=== PATIENT | female | born 2005 | race Caucasian/White ===

== ENCOUNTER 2024-01-10 22:26 | Emergency (ER) | payer OTHER, SELFPAY ==
[2024-01-10 22:42] VITALS: BP 130/80; PULSE 75; TEMP 37.2; O2SAT 98; BMI 36.3
--- NOTE | 2024-01-10 22:47 | XR_ITS ---
The [address] [address] Patient Name: CAMILLE HUNT MRN: [id number] date: 2005 Sex: F Assigned Patient Location: ER Current Patient Location: ER Accession/Order Number: [id number] Exam Date: 01/10/2024 22:52 Report Date: 01/10/2024 23:23 At the request of: CARLENE CONRAD Procedure: XR ankle LT min 3V EXAM: XR ankle LT min 3V HISTORY: Fall, twisted COMPARISON: Left ankle x-rays, 08/29/2021. TECHNIQUE: AP, oblique and lateral left ankle x-rays. FINDINGS: There is no acute left ankle fracture. There is mild asymmetric widening of the lateral ankle mortise. Anterior and bilateral soft tissue swelling is present. XR/XR ankle LT min 3V IMPRESSION: Diffuse soft tissue swelling with mild asymmetric widening of the lateral ankle mortise. No acute fracture or hany dislocation. Electronically authenticated by: FRIEDA HIDALGO Date: 01/10/2024 23:23
--- NOTE | 2024-01-10 22:47 | ED.LOWEXI1 ---
HPI HPI - Extremity Injury (Lower) General Chief Complaint: Extremity Injury, Lower Stated Complaint: LEFT ANKLE INJURY Time Seen by Provider: 01/10/24 22:28 Source: patient Mode of arrival: Wheelchair Limitations: no limitations History of Present Illness HPI Narrative: 18-year-old female presents for left ankle pain. About an hour ago she fell and twisted her ankle when she slipped on a wet floor. She did not hit her head and has no other injury. No pain in the foot or knee. The pain is moderate. Related Data Home Medications ?Medication ?Instructions ?Recorded ?Confirmed desogestrel 0.15 mg-ethinyl 1 tab PO DAILY 01/10/24 01/10/24 estradiol 0.03 mg tablet (Isibloom) Previous Rx's ?Medication ?Instructions ?Recorded ibuprofen 800 mg tablet 800 mg PO Q8H PRN pain #20 tabs 01/10/24 Allergies Allergy/AdvReac Type Severity Reaction Status Date / Time No Known Drug Allergies Allergy Verified 01/10/24 22:46 Opioid HPI Opioid Management Most Recent Pain and Opioid Data: Last Pain Scale 7 01/10/24 22:55 Last ED Pain Assessment 01/10/24 22:55 Review of Systems ROS Narrative A ten point review of systems is negative except as noted above. Exam Narrative Exam Narrative: Nurses note and vital signs reviewed and patient is not hypoxic. General: The patient appears well and in no apparent distress. Patient is resting comfortably on cart. Skin: Warm, dry, no pallor noted. There is no rash noted. Head: Normocephalic, atraumatic Eye: Normal conjunctiva, no drainage Ears, Nose, Mouth, and Throat: oral mucosa is moist. Nares patent. Cardiovascular: Regular Rate and Rhythm Respiratory: Patient is in no distress, no accessory muscle use Back: non-tender GI: Soft and Musculoskeletal: No tenderness in the left knee or left foot. She has some tenderness over the left lateral malleolus. Skin intact. Neurological: Awake and alert Psychiatric: Cooperative Constitutional Vital Signs, click to edit/add: Last Vital Signs Temp 98.9 F 01/10/24 22:42 Pulse 75 01/10/24 22:42 Resp 16 01/10/24 22:42 BP 130/80 01/10/24 22:42 Pulse Ox 98 01/10/24 22:42 O2 Del Method Room Air 01/10/24 22:42 Course Vital Signs Vital signs: Vital Signs Temperature 98.9 F 01/10/24 22:42 Pulse Rate 75 01/10/24 22:42 Respiratory Rate 16 01/10/24 22:42 Blood Pressure 130/80 01/10/24 22:42 Pulse Oximetry 98 01/10/24 22:42 Oxygen Delivery Method Room Air 01/10/24 22:42 Temperature 98.9 F 01/10/24 22:42 Pulse Rate 75 01/10/24 22:42 Respiratory Rate 16 01/10/24 22:42 Blood Pressure 130/80 01/10/24 22:42 Pulse Oximetry 98 01/10/24 22:42 Oxygen Delivery Method Room Air 01/10/24 22:42 MDM - Extremity Injury (Lower) MDM Narrative Medical decision making narrative: X-ray findings are discussed with the patient and her family. Toro wrap and air splint are applied, application checked by me and found to be appropriate, she is neurovascular intact. She is placed on crutches and referred to podiatry. Treatment diagnosis and follow-up were discussed with the patient. Differential Diagnosis Differential diagnosis: Likely ankle sprain and strain and other (Ankle sprain, ankle fracture) Imaging Data Ankle x-ray: Radiologist's impression: ITS Impressions Ankle X-Ray 01/10/24 22:47 IMPRESSION: Diffuse soft tissue swelling with mild asymmetric widening of the lateral ankle mortise. No acute fracture or hany dislocation. Electronically authenticated by: FRIEDA HIDALGO Date: 01/10/2024 23:23 Discharge Plan Discharge Stand Alone Forms: Portal Instructions Chief Complaint: Extremity Injury, Lower Clinical Impression: Left ankle sprain Patient Disposition: Home, Self-Care Time of Disposition Decision: 23:31 Condition: Good Mode of Transportation: Private Vehicle Prescriptions / Home Meds: New ibuprofen 800 mg tablet 800 mg PO Q8H PRN (Reason: pain) Qty: 20 0RF No Action desogestrel-ethinyl estradiol [Isibloom] 0.15-0.03 mg tablet 1 tab PO DAILY Print Language: Bengali Instructions: Ankle Sprain (ED), Crutch Instructions (ED), How to Use an Elastic Bandage (ED), Ankle Stirrup Splint (ED) Referrals: JOSEPH TAPIA [Primary Care Provider] - 1 week Manjeet Mohan DPM [Physician] - 1 week
[2024-01-10] MEDS: IBUPROFEN 400 MG TABLET 800 MG PO (23:54)
== END 2024-01-11 00:16 | disposition home or self-care (01) ==
PROVIDERS: Emergency Provider Emergency Medicine; PCP Nurse Practitioner
DX: S93.402A Sprain of unspecified ligament of left ankle, initial encounter (principal); W01.0XXA Fall on same level from slipping, tripping and stumbling without subsequent striking against object, initial encounter
CPT/HCPCS: 73610; 99283

== ENCOUNTER 2024-01-19 16:00 | Outpatient (OUT) | payer OTHER, SELFPAY ==
--- NOTE | 2024-01-19 | XR_ITS ---
The [address] [address] Patient Name: CAMILLE HUNT MRN: [id number] date: 2005 Sex: F Assigned Patient Location: Current Patient Location: Accession/Order Number: [id number] Exam Date: 01/19/2024 16:01 Report Date: 01/19/2024 18:00 At the request of: TERRI CALI Procedure: XR ankle LT min 3V EXAM: XR ankle LT min 3V HISTORY: LEFT ANKLE PAIN COMPARISON: 01/10/2024 TECHNIQUE: 3 views of the left ankle were obtained. FINDINGS: There is no apparent acute fracture or dislocation. There are bone fracture fragments along the lateral aspect of the distal tibial metaphysis. These were not visualized in the prior studies. There is slight relative widening of the mortise along the lateral aspect. There is no other evidence of a fracture or dislocation. The mortise is otherwise intact. No osteochondral injury is identified. Soft tissue swelling is noted surrounding the ankle, more so medially. XR/XR ankle LT min 3V IMPRESSION: Small fracture fragments are seen along the ulnar aspect of the distal tibial metaphysis, which were not apparent in the prior study. The findings would indicate an injury to the syndesmosis and attachment site with the tibia. Soft tissue swelling is seen about the ankle. There is no other evidence of a fracture or dislocation. Electronically authenticated by: IVONNE JEFFERSON Date: 01/19/2024 18:00
--- OUTSIDE RECORDS SUMMARY | 2024-01-19 16:11 | XMS_ITS | CCD ---
Author Organization [facility] Care Team Providers Care Veterinary Poultry Inspector Name Role Phone JV, DR KELVIN Tenorio Primary Care Unavailable CARLENE CONRAD Admitting Unavailable CARLENE CONRAD Attending Unavailable ZIEBCARRILLO, DR JOSSELYN Rai Consulting Unavailable CARLENE CONRAD Consulting Unavailable JV, DR KELVIN Tenorio Admitting Unavailable CARIAS, DR KELVIN Tenorio Attending Unavailable CARIAS, DR KELVIN Tenorio Referring Unavailable CARIAS, DR KELVIN Tenorio Primary Care Unavailable CARIAS, DR KELVIN Tenorio Consulting Unavailable CARIAS, DR KELVIN Tenorio Primary Care Unavailable PAY, DR CARUSO Consulting Unavailable PAY, DR CARUSO Admitting Unavailable PAY, DR CARUSO Attending Unavailable Tessa, ACID PAINTER Sunitha L Attending Unavailable Tessa, ACID PAINTER Sunitha L Attending Unavailable Tessa, ACID PAINTER Sunitha L Attending Unavailable Tessa, ACID PAINTER Sunitha L Attending Unavailable Problems Active Problems Problem Classification Problem Date Documented Da te Episodic/Chronic Anxiety disorders (1 source) Other specified anxiety disorders; Translations: [OTHER SPECIFIED ANXIETY DISORDERS] Onset: 12-03-2021 Chronic Mood disorders (1 source) Major depressive disorder, single episode, unspecified; Translations: [ARTURO DEPRESS D/O SINGLE EPIS UNS] Onset: 12-03-2021 Chronic Personality disorders (1 source) Personality disorder, unspecified; Translations: [PERSONALITY DISORDER UNSPECIFIED] Onset: 12-03-2021 Chronic Suicide and intentional self-inflicted injury (4 sources) Suicidal ideations; Translations: [SUICIDAL IDEATIONS] Onset: 12-02-2021 Episodic Past or Other Problems Problem Classification Problem Date Documented Da te Episodic/Chronic E Codes: Fall (1 source) Fall on same level due to ice and snow, initial encounter; Translations: [FALL SAME LEVEL D/T ICE SNOW INIT] Onset: 08-30-2021 Episodic Immunizations and screening for infectious disease (4 sources) Contact with and (suspected) exposure to other viral communicable diseases; Translations: [CONTCT EXPS OTH VIRL COMMUNICABL DZ] Onset: 04-10-2021 Episodic Other non-traumatic joint disorders (3 sources) Pain in left ankle and joints of left foot; Translations: [PAIN IN LEFT ANKLE] Onset: 08-29-2021 Episodic Sprains and strains (1 source) Sprain of unspecified ligament of left ankle, initial encounter; Translations: [SPRAIN UNS LIGAMENT LT ANKLE INIT] Onset: 08-30-2021 Episodic Results Test Name Value Interpretation Reference Range Facility ED Note-Physicianon 01-11-20 ED Note-Physician [id number] 8#1.00TIFF Normal [facility] RAD - MISCon 01-11-2024 RAD - MISC [id number] 7#1.00TIFF Normal [facility] Ambulatory Visit Summaryon 0 11-26-2023 Ambulatory Visit Summary ANGELINA RICHARDSA SARAH :2005 Visit Date:11/26/2023 Ambulatory Visit Instructions Your Diagnosis Encounter for control pills maintenance BMI 36.0-36.9,adult Non-smoker Your Care Team Attending Physician - Sunitha Schneider Primary Care Physician - Sunitha Schneider This Is Your Medications List desogestrel-ethinyl estradiol (Apri oral tablet) lurasidone (lurasidone 20 mg oral tablet) propranolol (propranolol 20 mg Tab) Discharge Vitals Heart Rate (Peripheral) 100 Blood Pressure 116/84 Height 169.2 cm Height 67 in Weight 104.0 kg Weight 228.8 lb BMI 36.33 What to do next Scheduled Follow-Up Appointments 2024 3:00 PM EST With: Sunitha Schneider Where: [facility] [place] Normal [facility] Family Medicine Office/Clini c Noteon 11-26-2023 Family Medicine Office/Clinic Note Chief Complaint 3 mo fu HPI Staff Camille is a 18 year old female presenting for 3 month follow up Contraceptive use: Age: 22 Age period started:_ Cycle Characteristics:_, _, lasting about _, In a relationship:yes Sexually active:yes Exposure to STDS:no Safe practices:Yes, uses condoms concerns/complains: none, History of Present Illness pt presents today for follow up on OCP's Review of Systems PHQ Score Initial Depression Screen Score: 0 SCORE Physical Exam Vitals & Measurements HR: 100(Peripheral) BP: 116/84 SpO2: 96% HT: 67 in HT: 169.2 cm WT: 104.0 kg WT: 228.8 lb BMI: 36.33 General: alert, no acute distress ENMT: oral mucosa moist, no pharyngeal erythema or exudate Cardiovascular: regular rate and rhythm, normal peripheral perfusion Respiratory: Lungs CTA, respirations non labored Extremities: no deformity, no trauma Neurological: oriented x 4, LOC appropriate for age, CN II-XII intact, motor strength equal & normal bilaterally, speech normal Assessment/Plan 1. Encounter for control pills maintenance (Z30.41: Encounter for surveillance of contraceptive pills) pt presents today for follow up on OCP's. pt had bleeding for 2 weeks after starting it. but she did not start them as instructed. she says they are back to normal now. denies side effects. RTC 9 months for well woman visit. no pap. will just need refill on OCP's 2. BMI 36.0-36.9,adult (Z68.36: Body mass index [BMI] 36.0-36.9, adult) BMI education complete 3. Non-smoker (Z78.9: Other specified health status) continue not smoking Orders: desogestrel-ethinyl estradiol, 1 tab(s), Oral, Daily, 84 tab(s), Refill(s) 2, [facility], 169.2, cm, 11/26/23 14:58:00 EDT, Height/Length Dosing, 104, kg, 11/26/23 14:58:00 EDT, Weight Dosing desogestrel-ethinyl estradiol, 1 tab(s), Oral, Daily, 28 tab(s), Refill(s) 0, [facility], 169.2, cm, 07/16/23 13:55:00 EST, Height/Length Dosing, 101, kg, 07/16/23 13:55:00 EST, Weight Dosing Follow-up No qualifying data available Problem List/Past Medical History Ongoing Counseling for control, oral contraceptives Encounter for control pills maintenance Mild recurrent major depression Mixed bipolar affective disorder, moderate Historical No qualifying data Medications Apri oral tablet, 1 tab(s), Oral, Daily, 2 refills lurasidone 20 mg oral tablet, 20 mg= 1 tab(s), Oral, Daily propranolol 20 mg Tab, 20 mg= 1 tab(s), Oral, BID, PRN Allergies No Known Allergies Social History Tobacco Never (less than 100 in lifetime) Tobacco Use:., 11/26/2023 Never (less than 100 in lifetime) Tobacco Use:. Never Smokeless Tobacco Use:. Household tobacco concerns: No., 07/16/2023 Family History Primary malignant neoplasm of female breast: Grandparent. Immunizations Vaccine Date Status meningococcal conjugate vaccine 04/29/2022 Recorded diphtheria/pertussi s, acel/tetanus adult 02/26/2017 Recorded meningococcal conjugate vaccine 02/26/2017 Recorded hepatitis A pediatric vaccine 02/26/2017 Recorded measles/mumps/rubel la/varicella vaccine 01/02/2010 Recorded hepatitis A pediatric vaccine 01/02/2010 Recorded diphtheria/pertussi s,acel/tetanus/jina o 01/02/2010 Recorded Hib, unspecified formulation 05/05/2006 Recorded DTaP, unspecified formulation 05/05/2006 Recorded varicella virus vaccine 10/06/2005 Recorded measles/mumps/rubel la virus vaccine 10/06/2005 Recorded influenza virus vaccine, inactivated 06/11/2005 Recorded poliovirus vaccine, inactivated 02/17/2005 Recorded DTaP, unspecified formulation 02/17/2005 Recorded poliovirus vaccine, inactivated 01/08/2005 Recorded Hib, unspecified formulation 01/08/2005 Recorded DTaP, unspecified formulation 01/08/2005 Recorded poliovirus vaccine, inactivated 2004 Recorded DTaP, unspecified formulation 2004 Recorded hepatitis B pediatric vaccine 2004 Recorded Normal [facility] Comment on above: Result Comment: Elec tronically Signed By: Sunitha Scnheider\.darlene\Date and Time Signed: 11/26/23 15:08 EDT Ambulatory Visit Summaryon 1 09-16-2022 Ambulatory Visit Summary CAMILLE RICHARDS :2005 Visit Date:07/16/2023 Ambulatory Visit Instructions Your Diagnosis Counseling for control, oral contraceptives BMI 35.0-35.9,adult Non-smoker Your Care Team Attending Physician - Sunitha Schneider Primary Care Physician - Sunitha Schneider This Is Your Medications List lurasidone (lurasidone 20 mg oral tablet) propranolol (propranolol 20 mg Tab) Discharge Vitals Heart Rate (Peripheral) 70 Respiratory Rate 18 Blood Pressure 122/82 Height 169.2 cm Height 67 in Weight 101.05 kg Weight 222.31 lb BMI 35.3 What to do next Scheduled Follow-Up Appointments 2023 2:00 PM EST With: Sunitha Schneider Where: [facility] Family Medicine Office/Clini c Noteon 07-16-2023 Family Medicine Office/Clinic Note HPI Staff Camille is a 17 year old female presenting to [facility] Establish Care: History: Any previous diagnosis: Anxiety , BPD History of seeing any specialist: [employer] Karlene [facility] services When was your last doctors visit: Last provider: MG Jacobson Any recent labs: no Health Maintenance UTD: Immunizations: UTD Acute: Current issues/complaints: pt has appointment with Dr Arroyo on 07/23/23 Pt would like to discuss starting control for contraception History of Present Illness pt presents today to discuss control options Review of Systems ROS - Provider Constitutional: no fever, no chills, no sweats, no fatigue Respiratory: no shortness of breath, no cough, no orthopnea, no wheezing. Cardiovascular: no chest pain, no palpitations, no edema. Neurologic: no headache, no dizziness, no numbness, no weakness. Physical Exam Vitals & Measurements HR: 70(Peripheral) RR: 18 BP: 122/82 HT: 67 in HT: 169.2 cm WT: 101.05 kg WT: 222.31 lb BMI: 35.3 General: alert, no acute distress ENMT: oral mucosa moist, no pharyngeal erythema or exudate Cardiovascular: regular rate and rhythm, normal peripheral perfusion Respiratory: Lungs CTA, respirations non labored Extremities: no deformity, no trauma Neurological: oriented x 4, LOC appropriate for age, CN II-XII intact, motor strength equal & normal bilaterally, speech normal Assessment/Plan 1. Counseling for control, oral contraceptives (Z30.09: Encounter for other general counseling and advice on contraception) pt presents today for control options. all options discussed. as well as risk, benefits, and side effects. pt would like to try OCP's. test negative in office today. pt to return in 3 months for follow up. Ordered: HCG, Urine POC [id number] 2. BMI 35.0-35.9,adult (Z68.35: Body mass index [BMI] 35.0-35.9, adult) BMI education complete Ordered: HCG, Urine POC [id number] 3. Non-smoker (Z78.9: Other specified health status) continue not smoking Ordered: HCG, Urine POC [id number] Follow-up No qualifying data available Problem List/Past Medical History Ongoing Counseling for control, oral contraceptives Historical No qualifying data Medications lurasidone 20 mg oral tablet, 20 mg= 1 tab(s), Oral, Daily propranolol 20 mg Tab, 20 mg= 1 tab(s), Oral, BID, PRN Allergies No Known Allergies Social History Tobacco Never (less than 100 in lifetime) Tobacco Use:. Never Smokeless Tobacco Use:. Household tobacco concerns: No., 07/16/2023 Family History Primary malignant neoplasm of female breast: Grandparent. Immunizations Vaccine Date Status meningococcal conjugate vaccine 04/29/2022 Recorded diphtheria/pertussi s, acel/tetanus adult 02/26/2017 Recorded meningococcal conjugate vaccine 02/26/2017 Recorded hepatitis A pediatric vaccine 02/26/2017 Recorded measles/mumps/rubel la/varicella vaccine 01/02/2010 Recorded hepatitis A pediatric vaccine 01/02/2010 Recorded diphtheria/pertussi s,acel/tetanus/jina o 01/02/2010 Recorded Hib, unspecified formulation 05/05/2006 Recorded DTaP, unspecified formulation 05/05/2006 Recorded varicella virus vaccine 10/06/2005 Recorded measles/mumps/rubel la virus vaccine 10/06/2005 Recorded influenza virus vaccine, inactivated 06/11/2005 Recorded poliovirus vaccine, inactivated 02/17/2005 Recorded DTaP, unspecified formulation 02/17/2005 Recorded poliovirus vaccine, inactivated 01/08/2005 Recorded Hib, unspecified formulation 01/08/2005 Recorded DTaP, unspecified formulation 01/08/2005 Recorded poliovirus vaccine, inactivated 2004 Recorded DTaP, unspecified formulation 2004 Recorded hepatitis B pediatric vaccine 2004 Recorded Lab Results Ambulatory Point of Care Results HCG, Urine: Negative (07/16/23 14:11:00) Normal [facility] Comment on above: Result Comment: Elec tronically Signed By: Tessa WOODS, Sunitha Severino\.br\Date and Time Signed: 07/16/23 14:16 EST ACETAMINOPHENon 12-02-2021 Acetaminophen [Mass/Vol] ug/mL Normal 10.0-30.0 [place] Comment on above: Performed By: #### C MP, ACET, SALYC #### [facility] [address] [place] [address] Dr. Francis Dennis CBC AUTO DIFFon 12-02-2021 BASO # 0.0 103/ul Normal 0.0-0.1 [place] Comment on above: Performed By: #### C BC #### [facility] [address] [place] [address] Dr. Francis Dennis Basophils/100 WBC (Bld) 0.3 % Normal 0.2-2.0 [place] Comment on above: Performed By: #### C BC #### [facility] [address] [place] [address] Dr. Francis Dennis EO # 0.1 103/ul Normal 0.0-0.7 [place] Comment on above: Performed By: #### C BC #### [facility] [address] [place] [address] Dr. Francis Dennis Eosinophils/100 WBC (Bld) 0.8 % Critically low 0.9-7.0 [place] Comment on above: Performed By: #### C BC #### [facility] [address] [place] [address] Dr. Francis Dennis Erythrocyte distribution width (RBC) [Ratio] 14.5 % Normal 11.0-15.0 [place] Comment on above: Performed By: #### C BC #### [facility] [address] [place] [address] Dr. Francis Dennis Hematocrit (Bld) [Volume fraction] 40.3 % Normal 36.0-48.0 [place] Comment on above: Performed By: #### C BC #### [facility] [address] [place] [address] Dr. Francis Dennis Hemoglobin (Bld) [Mass/Vol] 12.6 g/dL Normal 12.0-16.0 [place] Comment on above: Performed By: #### C BC #### [facility] [address] [place] [address] Dr. Francis Dennis IG # 0.04 10e3/ul Critically high 0.00-0.03 [facility] Comment on above: Performed By: #### C BC #### [facility] [address] [place] [address] Dr. Francis Dennis IG % 0.5 % Normal 0.0-0.5 [place] Comment on above: Performed By: #### C BC #### [facility] [address] [place] [address] Dr. Francis Dennis LYMPH # 1.4 103/ul Normal 1.2-3.8 [place] Comment on above: Performed By: #### C BC #### [facility] [address] [place] [address] Dr. Francis Dennis Lymphocytes/100 WBC (Bld) 15.9 % Critically low 20.5-60.0 [place] Comment on above: Performed By: #### C BC #### [facility] [address] [place] [address] Dr. Francis Dennis MANUAL DIFF REQ NO Normal [facility] Comment on above: Performed By: #### C BC #### [facility] [address] [place] [address] Dr. Francis Dennis MCH (RBC) [Entitic mass] 27.0 pg Normal 26.7-34.0 [place] Comment on above: Performed By: #### C BC #### [facility] [address] [place] [address] Dr. Francis Dennis MCHC (RBC) [Mass/Vol] 31.3 g/dL Normal 29.9-35.2 [place] Comment on above: Performed By: #### C BC #### [facility] [address] [place] [address] Dr. Francis Dennis MCV (RBC) [Entitic vol] 86.5 fL Normal 79.1-95.6 [place] Comment on above: Performed By: #### C BC #### [facility] [address] [place] [address] Dr. Francis Dennis MONO # 0.7 103/ul Normal 0.3-0.8 [place] Comment on above: Performed By: #### C BC #### [facility] [address] [place] [address] Dr. Francis Dennis Monocytes/100 WBC (Bld) 7.5 % Normal 1.7-12.0 [place] Comment on above: Performed By: #### C BC #### [facility] [address] [place] [address] Dr. Francis Dennis NEUT # 6.7 103/ul Critically high 1.4-6.5 [facility] Comment on above: Performed By: #### C BC #### [facility] [address] [place] [address] Dr. Francis Dennis Neutrophils/100 WBC (Bld) 75.0 % Normal 43.0-75.0 [place] Comment on above: Performed By: #### C BC #### [facility] [address] [place] [address] Dr. Francis Dennis Platelet mean volume (Bld) [Entitic vol] 9.2 fL Critically low 9.5-13.5 [facility] Comment on above: Performed By: #### C BC #### [facility] [address] [place] [address] Dr. Francis Dennis PLT 287 103/ul Normal 150-450 [facility] Comment on above: Performed By: #### C BC #### [facility] [address] [place] [address] Dr. Francis Dennis RBC 4.66 106/ul Normal 3.40-5.30 [facility] Comment on above: Performed By: #### C BC #### [facility] [address] [place] [address] Dr. Francis Dennis WBC 8.9 103/ul Normal 4.0-11.0 [place] Comment on above: Performed By: #### C BC #### [facility] [address] [place] [address] Dr. Francis Dennis DRUG SCREEN RAPID (URINE)on 12-02-2021 AMP Negative Normal NEGATIVE [place] Comment on above: Performed By: #### C VDTBH, CVDAGS #### [facility] [address] [place] [address] Beti Lilian BAR Negative Normal NEGATIVE [place] Comment on above: Performed By: #### C VDTBH, CVDAGS #### [facility] [address] [place] [address] Beti Lilian BUP Negative Normal NEGATIVE [place] Comment on above: Performed By: #### C VDTBH, CVDAGS #### [facility] [address] [place] [address] Beti Lilian BZO Negative Normal NEGATIVE [place] Comment on above: Performed By: #### C VDTBH, CVDAGS #### [facility] [address] [place] [address] Beti Lilian LACY Negative Normal NEGATIVE [place] Comment on above: Performed By: #### C VDTBH, CVDAGS #### [facility] [address] [place] [address] Beti Lilian CUT-OFFS SEE BELOW Normal [facility] Comment on above: Result Comment: AMP (Amphetamine): 500ng/mL, BAR (Barbituates): 200 ng/mL, BZO (Benzodiazepines): 150 ng/mL, BUP (Buprenorphine): 10 ng/mL, LACY (Cocaine): 150 ng/mL, mAMP (Methamphetamine): 500 ng/mL, MTD (Methadone): 200 ng/mL, OPI (Opiates): 100 ng/mL, OXY (Oxycodone): 100 ng/mL, PCP (Phencyclidine): 25 ng/mL, PPX (Propoxyphene): 300 ng/mL, THC (Cannabinoids): 50 ng/mL, TCA (Trycyclic Antidepressants): 300 ng/mL Performed By: #### C CTAIA CVDAGS #### [facility] [address] [place] [address] Beti Lilian DRUG CUT HEADER DRUG CLASS TEST SYSTEM CUT-OFF CONCENTRATIONS ARE FOLLOWS: Normal [facility] Comment on above: Performed By: #### C CATIA CVDAGS #### [facility] [address] [place] [address] Beti Lilian mAMP Negative Normal NEGATIVE [facility] Comment on above: Performed By: #### C CATIA CVDAGS #### [facility] [address] [place] [address] Beti Lilian MTD Negative Normal NEGATIVE [facility] Comment on above: Performed By: #### C CATIA CVDAGS #### [facility] [address] [place] [address] Beti Lilian OPI Negative Normal NEGATIVE [facility] Comment on above: Performed By: #### C CATIA CVDAGS #### [facility] [address] [place] [address] Beti Lilian OXY Negative Normal NEGATIVE [facility] Comment on above: Performed By: #### C CATIA CVDAGS #### [facility] [address] [place] [address] Beti Lilian PCP Negative Normal NEGATIVE [facility] Comment on above: Performed By: #### C CATIA CVDAGS #### [facility] [address] [place] [address] Beti Lilian PPX Negative Normal NEGATIVE [facility] Comment on above: Performed By: #### C CASSANDRATBKai CVDAGS #### [facility] [address] [place] [address] Beti Lilian TCA Positive Abnormal NEGATIVE [facility] Comment on above: Performed By: #### Teetee BARDALES CVDAGS #### [facility] [address] [place] [address] Beti Lilian THC Negative Normal NEGATIVE [place] Comment on above: Performed By: #### C CATIA CVDAGS #### [facility] [address] [place] [address] Betidaphnie Quintana ER URINE PROFILEon 2 Bilirubin Ql (U) Negative Normal NEGATIVE [facility] Comment on above: Performed By: #### C VDTBKai CVDAGS #### [facility] [address] [place] [address] Beti Lilian Clarity (U) CLEAR Normal CLEAR [place] Comment on above: Performed By: #### C CATIA CVDAGS #### [facility] [address] [place] [address] Beti Lilian Color (U) YELLOW Normal YELLOW [place] Comment on above: Performed By: #### C CATIA CVDAGS #### [facility] [address] [place] [address] Beti Quintana ERUAHD A micrscopic examination will be performed if indicated. Normal [facility] Comment on above: Performed By: #### C CATIA CVDAGS #### [facility] [address] [place] [address] Beti Lilian Glucose Ql (U) Negative Normal NEGATIVE [facility] Comment on above: Performed By: #### C VDJILLIAN CVDAGS #### [facility] [address] [place] [address] Beti Lilian Hemoglobin Ql (U) Negative Normal NEGATIVE [facility] Comment on above: Performed By: #### C VDTBKai CVDAGS #### [facility] [address] [place] [address] Beti Lilian Ketones Ql (U) Negative Normal NEGATIVE [facility] Comment on above: Performed By: #### C VDTBKai CVDAGS #### [facility] [address] [place] [address] Beti Lilian LEUKOCYTES Negative Normal NEGATIVE [facility] Comment on above: Performed By: #### C VDTBKai CVDAGS #### [facility] [address] [place] [address] Beti Lilian Nitrite Ql (U) Negative Normal NEGATIVE [facility] Comment on above: Performed By: #### C RODRIGUEZ BARDALESS #### [facility] [address] [id number] Beti Lilian pH (U) 6.0 [pH] Normal 5-9 [place] Comment on above: Performed By: #### C RODRIGUEZ BARDALESS #### [facility] [address] [place] [address] Beti Lilian SPEC GRAVITY 1.025 Normal 1.005-<=1.025 The [facility] Comment on above: Performed By: #### C RODRIGUEZ BARDALESS #### [facility] [address] [place] [address] Beti Lilian UA PROTEIN Negative Normal NEGATIVE/ TRACE [place] Comment on above: Performed By: #### C RODRIGUEZ BARDALESS #### [facility] [address] [place] [address] Beti Lilian UR MICRO IND NOT INDICATED Normal [facility] Comment on above: Performed By: #### C RODRIGUEZ BARDALESS #### [facility] [address] [place] [address] Betidaphnie Quintana Urobilinogen Qn (U) 0.2 {Clara'U}/dL Normal 0.2 - 1. 0 [place] Comment on above: Performed By: #### C CATIA CVDISACS #### [facility] [address] [place], [place] [id number] Beti Lilian ETHANOL (BLD ALC)on 12-03-19 ALC NOTE NOTE: 80 mg/dl is the legal limit for a blood alcohol level Normal [place] Comment on above: Performed By: #### E TH #### [facility] [address] [place], [place] [address] Dr. Francis Dennis Ethanol [Mass/Vol] mg/dL Normal [facility] Comment on above: Performed By: #### E TH #### [facility] [address] [place] [address] Dr. Francis Dennis PREG HCG QUALon 12-02-2021 , QUAL Negative Normal NEGATIVE [facility] Comment on above: Performed By: #### P REG #### [facility] [address] [place] [address] Dr. Francis Dennis URon 12-02-2021 , QUAL Negative Normal NEGATIVE [facility] Comment on above: Performed By: #### P REGU, ERUR, DRUGRPD #### [facility] [address] [place] [address] [address] Francis Dennis PROF 14(COMP METB)on 022 Albumin [Mass/Vol] 4.2 g/dL Normal 3.4-5.0 [facility] Comment on above: Performed By: #### C MP, ACET, SALYC #### [facility] [address] [place] [address] Dr. Francis Dennis Albumin/Globulin [Mass ratio] 1.2 {ratio} Normal [place] Comment on above: Performed By: #### C MP, ACET, SALYC #### [facility] [address] [place] [address] Dr. Francis Dennis ALP [Catalytic activity/Vol] 85 U/L Normal 65-260 [place] Comment on above: Performed By: #### C MP, ACET, SALYC #### [facility] [address] [place] [address] Dr. Francis Dennis ALT [Catalytic activity/Vol] 30 U/L Normal 14-59 [place] Comment on above: Performed By: #### C MP, ACET, SALYC #### [facility] [address] [place] [address] Dr. Francis Dennis Anion gap [Moles/Vol] 10.4 mmol/L Normal [place] Comment on above: Performed By: #### C MP, ACET, SALYC #### [facility] [address] [place] [address] Dr. Francis Dennis AST [Catalytic activity/Vol] 20 U/L Normal 15-37 [place] Comment on above: Performed By: #### C MP, ACET, SALYC #### [facility] [address] [place] [address] Dr. Francis Dennis Bilirubin [Mass/Vol] 0.2 mg/dL Normal 0.2-1.0 [place] Comment on above: Performed By: #### C MP, ACET, SALYC #### [facility] [address] [place] [address] Dr. Francis Dennis Calcium [Mass/Vol] 8.9 mg/dL Normal 8.5-10.1 [facility] Comment on above: Performed By: #### C MP, ACET, SALYC #### [facility] [address] [place] [address] Dr. Francis Dennis Chloride [Moles/Vol] 103 mmol/L Normal 98-107 [facility] Comment on above: Performed By: #### C MP, ACET, SALYC #### [facility] [address] [place] [address] Dr. Francis Dennis CO2 [Moles/Vol] 31.8 mmol/L Normal 21.0-32.0 [facility] Comment on above: Performed By: #### C MP, ACET, SALYC #### [facility] [address] [place] [address] Dr. Francis Dennis Creatinine [Mass/Vol] 0.96 mg/dL Normal 0.55-1.02 [place] Comment on above: Performed By: #### C MP, ACET, SALYC #### [facility] [address] [place] [address] Dr. Francis Dennis EGFR-AF CITIZEN [place] >60 Normal >=60 [facility] Comment on above: Performed By: #### C MP, ACET, SALYC #### [facility] [address] [place] [address] Dr. Francis Dennis EGFR-NON AF CITIZEN OF [place] >60 Normal >=60 [place] Comment on above: Performed By: #### C MP, ACET, SALYC #### [facility] [address] [place] [address] Dr. Francis Dennis Globulin (S) [Mass/Vol] 3.4 g/dL Normal [place] Comment on above: Performed By: #### C MP, ACET, SALYC #### [facility] [address] [place] [address] Dr. Francis Dennis Glucose [Mass/Vol] 90 mg/dL Normal 74-106 [facility] Comment on above: Performed By: #### C MP, ACET, SALYC #### [facility] [address] [place] [address] Dr. Francis Dennis Potassium [Moles/Vol] 4.2 mmol/L Normal 3.5-5.1 [place] Comment on above: Performed By: #### C MP, ACET, SALYC #### [facility] [address] [place] [address] Dr. Francis Dennis Protein [Mass/Vol] 7.6 g/dL Normal 6.1-8.2 [facility] Comment on above: Performed By: #### C MP, ACET, SALYC #### [facility] [address] [place] [address] Dr. Francis Dennis Sodium [Moles/Vol] 141 mmol/L Normal 136-145 [facility] Comment on above: Performed By: #### C MP, ACET, SALYC #### [facility] [address] [place] [address] Dr. Francis Dennis Urea nitrogen [Mass/Vol] 8.0 mg/dL Normal 6.4-19.3 [facility] Comment on above: Performed By: #### C MP, ACET, SALYC #### [facility] [address] [place] [address] Dr. Francis Dennis Urea nitrogen/Creatinine [Mass ratio] 8.3 mg/mg Normal [facility] Comment on above: Performed By: #### C MP, ACET, SALYC #### [facility] [address] [place] [address] Dr. Francis Dennis SALICYLATEon 12-02-2021 SALICYLATE <2.8 Normal <=20.0 [facility] Comment on above: Performed By: #### C MP, ACET, SALYC #### [facility] [address] [place] [address] [address] Francis Dnenis Acetaminophenon 05-16-2021 Acetaminophen [Mass/Vol] 11.9 ug/mL Normal 10.0-30.0 [facility] Comment on above: Result Comment: PERF ORMED BY: [facility] [address] [place] [address] PATHOLOGIST BENCH MOLDER APPRENTICE MARGOT GALAN M.D. Performed By: #### A KALIE, LUBADS, [facility] #### [facility] [address] COVID-19 Antigenon 1 COVID-19 Antigen Healthcare Worker?: N Malu Reference -- Malu Reference Negative SARS-CoV+SARS-CoV-2 (COVID-19) Ag [Presence] in Respiratory specimen by Rapid immunoassay Negative for SARS Antigen by CHRISTINE COVID19 Blank Space Malu Disclaimer Negative results, from patients with symptom Malu Disclaimer onset beyond five days, should be treated as [place] Disclaimer presumptive and confirmation with a molecular [place] Disclaimer assay, if necessary, for patient management, Malu Disclaimer may be performed. Negative results do not rule [place] Disclaimer out COVID-19 and should not be used as the sole Mal[place] Disclaimer basis for treatment or patient management Malu Disclaimer decisions, including infection control decisions. Malu Disclaimer Negative results should be considered in the Malu Disclaimer context of a patient's recent exposures, history Malu Disclaimer and the presence of clinical signs and symptoms Malu Disclaimer consistent with COVID-19. COVID19 Blank Space Malu Disclaimer The Malu SARS Antigen CHRISTINE does not differentiate Malu Disclaimer between SARS-CoV and SARS-CoV-2. COVID19 Blank Space Malu Disclaimer This test was developed and its performance Malu Disclaimer characteristic determined by [employer] and Malu Disclaimer validated at [facility]. This Malu Disclaimer test has not been FDA cleared or approved. This Malu Disclaimer test has been authorized by FDA under an Emergency Use Malu Disclaimer Authorization (EUA). This test has been validated Mal[place] Disclaimer in accordance with the FDA's Guidance Document (Policy Malu Disclaimer for Diagnostics Testing in Laboratories Certified to Malu Disclaimer Perform High Complexity Testing under CLIA prior to Malu Disclaimer Emergency Use Authorization for Coronavirus Malu Disclaimer iseas during the Public Health Emergency) Malu Disclaimer issued on November 10, 2019. This test is only authorized Malu Disclaimer for the duration of time the declaration that Malu Disclaimer circumstances exist justifying the authorization of Malu Disclaimer the emergency use of in vitro diagnostic tests for Malu Disclaimer detection of SARS-CoV-2 virus and/or diagnosis of Malu Disclaimer COVID-19 infection under section 564(b)(1) of the Malu Disclaimer Act, 21 U.S.C. 360bbb-3(b)(1), unless the Malu Disclaimer authorization is terminated or revoked sooner. PERFORMED BY: [place] [address] PATHOLOGIST BENCH MOLDER APPRENTICE MARGOT GALAN M.D. [facility] Comment on above: Performed By: #### C OVID-19 GALO TORIBIOEG #### [address] ECG 12 lead ECGon 05-16-2021 ECG 12 lead ECG [facility] [address] [place] [address] [place] [address] Electrocardiograph Report Signed Patient: Camille Richards MR#: [id number] 2 : 2005 Acct:[id number] Age/Sex: 15 / F ADM Date: 05/15/21 Loc: ER Room: Type: [facility] ER Attending Dr: Ordering Provider: Francisco Ba DO Date of Service: 05/15/2101/29/2128 ECG/ECG 12 lead ECG: Psychiatric Symptoms Copies to: Test Reason : Blood Pressure : / mmHG Vent. Rate : 061 BPM Atrial Rate : 061 BPM P-R Int : 146 ms QRS Dur : 078 ms QT Int : 388 ms P-R-T Axes : 032 084 039 degrees QTc Int : 390 ms Normal sinus rhythm with sinus arrhythmia Normal ECG No previous ECGs available Confirmed by Francisco Ba DO ([id number]) on 05/16/2021 1:49:03 AM Referred By: Electronically Signed By:Francisco Ba DO Transcribed By: MUS Signed By Francisco Ba DO 1 0149 Normal [facility] Malu Ag Negativeon 05-16-20 21 Malu Ag Negative Negative Normal Negative [facility] Comment on above: Result Comment: This is a duplicate Malu SARS Antigen (CHRISTINE) result to be used for statistical tracking purpose only. PERFORMED BY: [place] [address] PATHOLOGIST BENCH MOLDER APPRENTICE MARGOT GALAN M.D. Performed By: #### C OVID-19 MALU, SOFIANEG #### [place] [id number] [facility] Acetaminophenon 05-15-2021 Acetaminophen [Mass/Vol] 32.2 ug/mL High 10.0-30.0 [facility] Comment on above: Result Comment: 4 ho urs after dose, critical > 150 12 hours after dose, critical > 40 PERFORMED BY: [place] [address] PATHOLOGIST BENCH MOLDER APPRENTICE MARGOT GALAN M.D. Performed By: #### S AL, ACET #### [address] [place] [address] [place] Complete Blood Count Auto Di ffon 05-15-2021 Basophils (Bld) [#/Vol] 0.1 10*3/uL Normal 0.0-0.1 [facility] Comment on above: Result Comment: PERF ORMED BY: [place] [address] PATHOLOGIST BENCH MOLDER APPRENTICE MARGOT GALAN M.D. Performed By: #### C BC, CMP, ETOH #### [address] Basophils/100 WBC (Bld) 0.6 % Normal . [facility] Comment on above: Performed By: #### C BC, CMP, ETOH #### [address] Eosinophils (Bld) [#/Vol] 0.0 10*3/uL Normal 0.0-0.7 [facility] Comment on above: Performed By: #### C BC, CMP, ETOH #### [address] Eosinophils/100 WBC (Bld) 0.3 % Normal . [facility] Comment on above: Performed By: #### C BC, CMP, ETOH #### [address] Erythrocyte distribution width (RBC) [Ratio] 13.4 % Normal 11.9-15.3 [facility] Comment on above: Performed By: #### C BC, CMP, ETOH #### [place] [address] [place] Hematocrit (Bld) [Volume fraction] 40.9 % Normal 36.0-46.0 [facility] Comment on above: Performed By: #### C BC, CMP, ETOH #### [place] [address] [place] Hemoglobin (Bld) [Mass/Vol] 13.6 g/dL Normal 12.0-16.0 [facility] Comment on above: Performed By: #### C BC, CMP, ETOH #### [address] [place] [address] [place] Lymphocytes (Bld) [#/Vol] 1.6 10*3/uL Normal 1.20-4.8 [facility] Comment on above: Performed By: #### C BC, CMP, ETOH #### [facility] [address] [place] [address] [place] Lymphocytes/100 WBC (Bld) 12.2 % Normal . [facility] Comment on above: Performed By: #### C BC, CMP, ETOH #### [facility] [address] [place] [address] [place] MCH (RBC) [Entitic mass] 28.6 pg Normal 25.0-35.0 [facility] Comment on above: Performed By: #### C BC, CMP, ETOH #### [facility] [address] MCV (RBC) [Entitic vol] 86.2 fL Normal 78-102 [facility] Comment on above: Performed By: #### C BC, CMP, ETOH #### [facility] [address] Mean Corpuscular HGB Conc 33.2 g/dL Normal 31.0-37.0 [facility] Comment on above: Performed By: #### C BC, CMP, ETOH #### [facility] [address] [place] [address] [place] Monocytes (Bld) [#/Vol] 0.9 10*3/uL Normal 0.1-1.00 [facility] Comment on above: Performed By: #### C BC, CMP, ETOH #### [place] [address] [place] Monocytes/100 WBC (Bld) 6.8 % Normal . [facility] Comment on above: Performed By: #### C BC, CMP, ETOH #### [facility] [address] [place] [address] [place] Neutrophils (Bld) [#/Vol] 10.4 10*3/uL High 1.2-7.7 [facility] Comment on above: Performed By: #### C BC, CMP, ETOH #### [facility] [address] [place] [address] [place] Neutrophils/100 WBC (Bld) 80.1 % Normal . [facility] Comment on above: Performed By: #### C BC, CMP, ETOH #### [facility] [address] Nucleated RBC/100 WBC (Bld) [Ratio] 0.0 % Normal 0-0.5 [facility] Comment on above: Performed By: #### C BC, CMP, ETOH #### [facility] [address] Platelet mean volume (Bld) [Entitic vol] 7.5 fL Normal 6.3-10.7 [facility] Comment on above: Performed By: #### C BC, CMP, ETOH #### [facility] [address] Platelets (Bld) [#/Vol] 301 10*3/uL Normal 150-450 [facility] Comment on above: Performed By: #### C BC, CMP, ETOH #### [place] [address] [place] RBC (Bld) [#/Vol] 4.74 10*6/uL Normal 4.10-5.10 [facility] Comment on above: Performed By: #### C BC, CMP, ETOH #### [facility] [address] [place] [address] [place] WBC (Bld) [#/Vol] 13.0 10*3/uL Normal 4.5-13.5 [facility] Comment on above: Performed By: #### C BC, CMP, ETOH #### [address] Comprehensive Metabolic Pane santos 05-15-2021 Albumin [Mass/Vol] 4.2 g/dL Normal 3.2-5.5 [facility] Comment on above: Performed By: #### C BC, CMP, ETOH #### [place] [address] [place] Albumin/Globulin [Mass ratio] 1.7 {ratio} Normal [facility] Comment on above: Performed By: #### C BC, CMP, ETOH #### [facility] [address] [place] [id number] [place] ALP [Catalytic activity/Vol] 55 U/L Low 67-372 [facility] Comment on above: Performed By: #### C BC, CMP, ETOH #### [facility] [address] [place] [id number] [place] ALT [Catalytic activity/Vol] 36 U/L Normal 10-60 [facility] Comment on above: Performed By: #### C BC, CMP, ETOH #### [facility] [address] AST [Catalytic activity/Vol] 26 U/L Normal 10-42 [facility] Comment on above: Performed By: #### C BC, CMP, ETOH #### [facility] [address] Bilirubin [Mass/Vol] 0.6 mg/dL Normal 0.3-1.2 [facility] Comment on above: Performed By: #### C BC, CMP, ETOH #### [facility] [address] [place] [address] [place] Calcium [Mass/Vol] 9.5 mg/dL Normal 8.2-10.2 [facility] Comment on above: Performed By: #### C BC, CMP, ETOH #### [facility] [address] [place] [address] [place] Chloride [Moles/Vol] 100 mmol/L Normal 95-114 [facility] Comment on above: Performed By: #### C BC, CMP, ETOH #### [facility] [address] [place] [id number] [place] CO2 [Moles/Vol] 25.9 mmol/L Normal 22.0-30.0 [facility] Comment on above: Performed By: #### C BC, CMP, ETOH #### [facility] [address] [place] [id number] [place] Creatinine [Mass/Vol] 0.83 mg/dL Normal 0.44-1.03 [facility] Comment on above: Performed By: #### C BC, CMP, ETOH #### [facility] [address] [place] [address] [place] Creatinine Clr Calc Pharmacy 120.35 Normal [facility] Comment on above: Result Comment: PERF ORMED BY: [place] [address] PATHOLOGIST BENCH MOLDER APPRENTICE MARGOT GALAN M.D. Performed By: #### C BC, CMP, ETOH #### [facility] [address] Globulin (S) [Mass/Vol] 2.5 g/dL Normal [facility] Comment on above: Performed By: #### C BC, CMP, ETOH #### [address] Glucose [Mass/Vol] 98 mg/dL Normal 70-100 [facility] Comment on above: Result Comment: [place] Glucose Reference Range is dependent on time and content of last meal. Glucose of more than 200 mg/dL in a nonstressed, ambulatory subject supports the diagnosis of Diabetes Mellitus. ADA recommended reference range Performed By: #### C BC, CMP, ETOH #### [address] Potassium [Moles/Vol] 3.8 mmol/L Normal 3.5-5.1 [facility] Comment on above: Performed By: #### C BC, CMP, ETOH #### [address] Protein [Mass/Vol] 6.7 g/dL Normal 6.1-7.9 [facility] Comment on above: Performed By: #### C BC, CMP, ETOH #### [facility] [address] Sodium [Moles/Vol] 138 mmol/L Normal 138-145 [facility] Comment on above: Performed By: #### C BC, CMP, ETOH #### [facility] [address] Urea nitrogen [Mass/Vol] 10 mg/dL Normal 9-23 [facility] Comment on above: Performed By: #### C BC, CMP, ETOH #### [facility] [address] [place] [address] [place] Dipstick and Microscopicon 1 Appearance (U) Slightly Cloudy Critically abnormal Clear [facility] Comment on above: Order Comment: Name Collection Type:: Clean-Voided Midstream Performed By: #### A DDONUAPLUS, URDS, UHCG #### [facility] [address] [place] [address] [place] Bacteria,Urine 2+ High None Seen [facility] Comment on above: Order Comment: Name Collection Type:: Clean-Voided Midstream Performed By: #### A DDONUAPLUS, URDS, UHCG #### [facility] [address] [place] [address] [place] Bilirubin,Urine 1+ High Negative [facility] Comment on above: Order Comment: Name Collection Type:: Clean-Voided Midstream Performed By: #### A DDONUAPLUS, URDS, UHCG #### [facility] [address] [place] [address] [place] Color (U) Yellow Normal Yellow [facility] Comment on above: Order Comment: Name Collection Type:: Clean-Voided Midstream Performed By: #### A DDONUAPLUS, URDS, UHCG #### [facility] [address] [place] [id number] [place] Glucose Ql (U) Normal Normal Normal [facility] Comment on above: Order Comment: Name Collection Type:: Clean-Voided Midstream Performed By: #### A DDONUAPLUS, URDS, UHCG #### [facility] [address] [place] [address] [place] Ketones Ql (U) 1+ High Negative [facility] Comment on above: Order Comment: Name Collection Type:: Clean-Voided Midstream Performed By: #### A DDONUAPLUS, URDS, UHCG #### [facility] [address] [place] [address] [place] Leukocyte esterase Test strip Ql (U) Negative Normal Negative [facility] Comment on above: Order Comment: Name Collection Type:: Clean-Voided Midstream Performed By: #### A DDONUAPLUS, URDS, UHCG #### [address] Mucus,Urine 2+ Critically abnormal [facility] Comment on above: Order Comment: Name Collection Type:: Clean-Voided Midstream Performed By: #### A DDONUAPLUS, URDS, UHCG #### [address] Nitrite,Urine Negative Normal Negative [facility] Comment on above: Order Comment: Name Collection Type:: Clean-Voided Midstream Performed By: #### A DDONUAPLUS, URDS, UHCG #### [address] Occult Blood,Urine Negative Normal Negative [facility] Comment on above: Order Comment: Name Collection Type:: Clean-Voided Midstream Performed By: #### A DDONUAPLUS, URDS, UHCG #### [address] pH (U) 5.5 [pH] Normal 5.0-9.0 [facility] Comment on above: Order Comment: Name Collection Type:: Clean-Voided Midstream Performed By: #### A DDONUAPLUS, URDS, UHCG #### [address] Protein (U) [Mass/Vol] 30 mg/dL High Negative [facility] Comment on above: Order Comment: Name Collection Type:: Clean-Voided Midstream Performed By: #### A DDONUAPLUS, URDS, UHCG #### [address] RBC LM.HPF (Urine sed) [#/Area] 0 /[HPF] Normal 0-4 [facility] Comment on above: Order Comment: Name Collection Type:: Clean-Voided Midstream Performed By: #### A DDONUAPLUS, URDS, UHCG #### [address] [place] [address] [place] Specificy [place],Urine 1.030 Normal 1.001-1.030 [facility] Comment on above: Order Comment: Name Collection Type:: Clean-Voided Midstream Performed By: #### A DDONUAPLUS, URDS, UHCG #### [address] Squamous Epithelial Cell,Urine 5-9 High 0-2 [facility] Comment on above: Order Comment: Name Collection Type:: Clean-Voided Midstream Performed By: #### A DDONUAPLUS, URDS, UHCG #### [address] Urobilinogen,Urine Normal Normal Normal [facility] Comment on above: Order Comment: Name Collection Type:: Clean-Voided Midstream Performed By: #### A DDONUAPLUS, URDS, UHCG #### [address] WBC,Urine 3-4 Normal 0-4 [facility] Comment on above: Order Comment: Name Collection Type:: Clean-Voided Midstream Performed By: #### A DDONUAPLUS, URDS, UHCG #### [address] Drug Screen,Urineon 05-15-20 21 Amphetamine Screen,Urine Negative Normal Negative [facility] Comment on above: Performed By: #### A DDONUAPLUS, URDS, UHCG #### [address] Barbiturate Screen,Urine Negative Normal Negative [facility] Comment on above: Performed By: #### A DDONUAPLUS, URDS, UHCG #### [place] [address] [place] Benzodiazepines Screen,Urine Negative Normal Negative [facility] Comment on above: Performed By: #### A DDONUAPLUS, URDS, UHCG #### [address] Cannabinoid Screen,Urine Negative Normal Negative [facility] Comment on above: Result Comment: Thes e are unconfirmed results and should not be used for legal purposes. Drug Cut-Off Concentration: AMPH 1000 ng/mL CHENCHO 200 ng/mL ANNI 200 ng/mL COCM 300 ng/mL OP 300 ng/mL PCP 25 ng/mL THC 20 ng/mL PERFORMED BY: [place] [address] PATHOLOGIST BENCH MOLDER APPRENTICE MARGOT GALAN M.D. Performed By: #### A DDONUAPLUS, URDS, CG #### [address] Cocaine Screen,Urine Negative Normal Negative [facility] Comment on above: Performed By: #### A DDONUAPLUS, URDS, CG #### [address] Opiate Screen,Urine Negative Normal Negative [facility] Comment on above: Performed By: #### A DDONUAPLUS, URDS, CG #### [address] Phencyclidine Screen,Urine Negative Normal Negative [facility] Comment on above: Performed By: #### A DDONUAPLUS, URDS, CG #### [address] Ethyl Alcohol Profileon 10 Ethanol [Mass/Vol] mg/dL Normal [facility] Comment on above: Performed By: #### C BC, CMP, ETOH #### [facility] [address] [place] [address] Percent Ethanol Not performed Normal [facility] Comment on above: Result Comment: PERF ORMED BY: [place] [address] PATHOLOGIST BENCH MOLDER APPRENTICE MARGOT GALAN M.D. Performed By: #### C BC, CMP, ETOH #### [facility] [address] [place] [address] HCG,Urineon 10-06-2021 Beta HCG ( test) Ql (U) Negative Normal [facility] Comment on above: Order Comment: Name Collection Type:: Clean-Voided Midstream Result Comment: PERF ORMED BY: [place] [address] PATHOLOGIST BENCH MOLDER APPRENTICE MARGOT GALAN M.D. Performed By: #### A DDONUAPLUS, URDS, UHCG #### [facility] [address] Salicylateon 05-15-2021 Salicylate < 4.0 Low 15.0-30.0 [facility] Comment on above: Result Comment: Velia ents treated with Sulfasalazine may generate a false high result for Salicylate. Patients treated with Sulfapyridine may generate a false low result for Salicylate. Performed By: #### S AL, ACET #### [facility] [address] Covid-19 PCR (CVDTB)on SARS-CoV-2 (COVID-19) RNA ABHIJEET+probe Ql (Unsp spec) Not detected Normal NOT DETECTED [facility] Comment on above: Result Comment: This test is not yet approved or cleared by the [place] FDA. When there are no FDA-approved or cleared tests available, and other criteria are met, FDA can make tests available under an emergency access mechanism called an Emergency Use Authorization (EUA). The EUA for this test is supported by the Security Administrator of Health and Human Service's (HHS's) declaration that circumstances exist to justify the emergency use of in vitro diagnostics for the detection and/or diagnosis of the virus that causes COVID-19. This EUA will remain in effect (meaning this test can be used) for the duration of the COVID-19 declaration justifying emergency of IVDs, unless it is terminated or revoked by FDA (after which the test may no longer be used). When diagnostic testing is negative, the possibility of a false negative should be considered in the context of a patient's recent exposures and the presence of clinical signs and symptoms consistent with SARS-CoV-2. Performed By: #### C VDTBH, CVDAGS #### [facility] [address] [place], [place] [address] Beti Quintana SYMPTOMATIC COVID-19 ANTIGEN on 04-10-2021 EUA Statement SEE BELOW Normal [facility] Comment on above: Result Comment: This test has not been FDA cleared or approved, but has been authorized by the FDA under an Emergency Use Authorization (EUA) for use by authorized laboratories certified under CLIA that meet the requirements to perform moderate or high complexity testing. This test has been authorized only for the detection of proteins from SARS-CoV-2, not for any other viruses or pathogens. The emergency use of this test is authorized for the duration of the declaration that circumstances exist justifying the authorization of emergency use of in vitro diagnostic tests for detection and/or diagnosis of Covid-19 under section 564(b)(1) of the Act, 21 U.S.C. 360bbb-3(b)(1), unless the declaration is terminated or authorization is revoked sooner. Performed By: #### C VDJILLIAN, CVDISACS #### [facility] [address] [place], [place] [address] Beti Quintana SARS-CoV-2 (COVID-19) RNA ABHIJEET+probe Ql (Unsp spec) Negative Normal NEGATIVE [facility] Comment on above: Result Comment: CONF IRMATION BY PCR PENDING PER CDC GUIDELINES/ SYMPTOMATIC PATIENT. Performed By: #### C VDTBH, CVDAGS #### [facility] [address] [place] [address] Beti Quintana Encounters Encounter Date Encounter Type Care Provider Facility Start: 08-25-2024 ambulatory ACID PAINTER Sunitha L Tessa Facil ity:[facility] Start: 11-26-2023 End: 11-26-2023 ambulatory ACID PAINTER Sunitha L Tessa Facility:[facility] Maryann meena Start: 10-02-2023 End: 10-02-2023 ambulatory ACID PAINTER Sunitha L Tessa Facility:[facility] [place] meena Start: 09-22-2023 ambulatory ACID PAINTER Sunitha Tessa Facilit y:[facility] L[place] Start: 07-16-2023 End: 07-16-2023 ambulatory ACID PAINTER Sunitha L Tessa Facility:[facility] Maryann meena Start: 12-02-2021 End: 12-02-[address] KELVIN CARIAS Facility:[facility] Start: 08-29-2021 End: 08-29-[address] KELVIN CARIAS Facility:[facility] Start: 04-10-2021 End: 04-11-[address] KELVIN CARIAS Facility:[facility] Payers Date Payer Category Payer Private Health Insurance [id number] 2023 Unknown [id number] 2004 Unknown [id number] 2.16.8 [id number] 2004 Unknown [id number] 2.16.8 [id number] 2004 Unknown [id number] 2.16.8 [id number] 2004 Unknown [id number] 2.16.8 [id number] 1980 Unknown [id number] 2.16.84 [id number] 1980 Unknown [id number] 2.16.84 [id number] 1980 Unknown [id number] 2.16.84 [id number] 1959 Unknown [id number] Self-pay Clinical Note 08-29-2021 Note Date & Type Note Facility 08-29-2021 Note PROCEDURE: XR ANKLE LT MIN 3 V HISTORY: Unspecified fall ; anterior lateral ankle pain after twisting injury COMPARISON: None. FINDINGS: BONES:No fracture, acute abnormality, or significant arthropathy. SOFT TISSUES:Mild swelling. EFFUSION:None visible. OTHER: Negative. IMPRESSION: 1. Mild swelling suggesting soft tissue injury. 2. No acute bone abnormality. Electronically authenticated by: JOSSELYN BONILLA Date: 2021-08-29 08:13 [place] Summary Purpose Family History No Family History Records FoundNo Family History Records FoundNo Family History Records Found Advance Directives No Advanced Directives Records FoundNo Advanced Directives Records FoundNo Advanced Directives Records Found Additional Source Comments INFORMATION SOURCE (unrecogn ized section and content) DATE CREATED AUTHOR 09/03/2021 [facility] DATE CREATED AUTHOR AUTHOR'S ORGANIZ ATION [facility]/08/2021 [facility] DATE CREATED AUTHOR AUTHOR'S ORGANIZ ATION 01/11/2024 [facility] FOR RECORDS PERTAINING TO PATIENTS WHO ARE OR HAVE BEEN ENROLLED IN A CHEMICAL DEPENDENCY/SUBSTANCEABUSE PROGRAM, SOME INFORMATION MAY BE OMITTED. This clinical summary was aggregated from multiple sources. Caution should be exercised in using it in the provision of clinical care. This summary normalizes information from multiple sources, and as a consequence, information in this document may materially change the coding, format and clinical context of patient data. In addition, data may be omitted in some cases. CLINICAL DECISIONS SHOULD BE BASED ON THE PRIMARY CLINICAL RECORDS. [employer] provides no warranty or guarantee of the accuracy or completeness of information in this document.
== END 2024-01-19 16:01 | disposition home or self-care (01) ==
PROVIDERS: PCP Nurse Practitioner; Visit Provider Physician Assistant
DX: M25.572 Pain in left ankle and joints of left foot (principal); M25.472 Effusion, left ankle
CPT/HCPCS: 73610

== ENCOUNTER 2024-02-16 15:46 | Outpatient (OUT) | payer OTHER, SELFPAY ==
--- NOTE | 2024-02-16 | XR_ITS ---
The [address] [address] Patient Name: CAMILLE HUNT MRN: [id number] date: 2005 Sex: F Assigned Patient Location: Current Patient Location: Accession/Order Number: [id number] Exam Date: 02/16/2024 15:47 Report Date: 02/17/2024 14:30 At the request of: IVONNE SETH Procedure: XR ankle CARLINE min 3V EXAMINATION: XR ankle CARLINE min 3V HISTORY: BILATERAL ANKLE PAIN COMPARISON: No relevant comparison available. FINDINGS: RIGHT FINDINGS: BONES: Normal. No significant arthropathy or acute abnormality. SOFT TISSUES: Negative. No visible soft tissue swelling. OTHER: Negative. LEFT FINDINGS: BONES: Normal. No significant arthropathy or acute abnormality. SOFT TISSUES: Negative. No visible soft tissue swelling. OTHER: Negative. XR/XR ankle CARLINE min 3V IMPRESSION: Normal exam Electronically authenticated by: LANIE CANTOR Date: 02/17/2024 14:30
== END 2024-02-16 15:47 | disposition home or self-care (01) ==
LOC: EC 15:46
PROVIDERS: PCP Nurse Practitioner; Visit Provider Podiatrist Foot & Ankle Surgery
DX: M25.572 Pain in left ankle and joints of left foot (principal); M25.571 Pain in right ankle and joints of right foot
CPT/HCPCS: 73610

== ENCOUNTER 2024-11-26 09:28 | Outpatient (OUT) | payer OTHER, SELFPAY ==
--- OUTSIDE RECORDS SUMMARY | 2024-11-26 09:32 | XMS_ITS | CCD ---
Author Organization [facility] Care Team Providers Care Binder Selector Name Role Phone JV, DR KELVIN Tenorio Primary Care Unavailable CARLENE CONRAD Admitting Unavailable ANAMARIA, CARLENE Moses Attending Unavailable ZIEBER, DR JOSSELYN Rai Consulting Unavailable CARLENE CONRAD Consulting Unavailable JV, DR KELVIN Tenorio Admitting Unavailable CARIAS, DR KELVIN Tenorio Attending Unavailable CARIAS, DR KELVIN Tenorio Referring Unavailable CARIAS, DR KELVIN Tenorio Primary Care Unavailable CARIAS, DR KELVIN Tenorio Consulting Unavailable CARIAS, DR KELVIN Tenorio Primary Care Unavailable PAY, DR CARUSO Consulting Unavailable PAY, DR CARUSO Admitting Unavailable PAY, DR CARUSO Attending Unavailable Tessa, ORACLE E BUSINESS DEVELOPER Sunitha L Attending Unavailable Tessa, ORACLE E BUSINESS DEVELOPER Sunitha L Attending Unavailable Tessa, ORACLE E BUSINESS DEVELOPER Sunitha L Attending Unavailable Tessa, ORACLE E BUSINESS DEVELOPER Sunitha L Attending Unavailable Tessa, ORACLE E BUSINESS DEVELOPER Sunitha L Attending Unavailable Tessa, ORACLE E BUSINESS DEVELOPER Sunitha L Attending Unavailable Problems Active Problems [...] Test Name Value Interpretation Reference Range Facility Family Medicine Office/Clini c Noteon 09-09-2024 Family Medicine Office/Clinic Note Family Medicine Office/Clinic Note HPI Staff Camille is a 19 year old female presenting for control refill Contraceptive use: Pt denies any concerns with her control at this time, does need refill. History of Present Illness pt presents today for refill on OCP's Review of Systems PHQ Score Initial Depression Screen Score: 0 SCORE Physical Exam Vitals & Measurements HR: 78(Peripheral) RR: 18 BP: 122/70 SpO2: 98% HT: 67 in HT: 169.2 cm WT: 104.1 kg WT: 229.501 lb BMI: 36.36 General: alert, no acute distress ENMT: oral [...] of contraceptive pills) pt presents today for annual visit for OCP refills. pt is doing well. denies needs. will retrun in 1 year for well woman visit. pap test. 2. BMI 36.0-36.9,adult (Z68.36: Body mass index [BMI] 36.0-36.9, adult) BMI education given 3. Non-smoker (Z78.9: Other specified health status) continue not smoking Follow-up No qualifying data available Problem List/Past Medical History Ongoing Counseling for control, oral contraceptives Encounter for control pills maintenance Mild recurrent major depression Mixed bipolar affective disorder, moderate Historical No qualifying data Medications Apri oral tablet, 1 tab(s), Oral, Daily, 2 refills busPIRone 5 mg Tab lurasidone 20 mg oral tablet, 20 mg= [...] hepatitis B pediatric vaccine 2004 Recorded Normal [facility] Comment on above: Result Comment: Elec tronically Signed By: Sunitha Schneider\.darlene\Date and Time Signed: 09/09/24 15:02 EST RAD - MISCon 01-20-2024 RAD - MISC [id number] 3#1.00TIFF Normal [facility] ED Note-Physicianon 01-11-20 ED Note-Physician [id number] 8#1.00TIFF Normal [facility] RAD - MISCon 01-11-2024 RAD MISC [id number] 7#1.00TIFF Normal [facility] Ambulatory Visit Summaryon 0 11-26-2023 Ambulatory Visit Summary CAMILLE RICHARDS :2005 Visit Date:11/26/2023 Ambulatory Visit Instructions Your [...] 3:00 PM EST With: Sunitha Schneider Where: [facility] [place] Normal [facility] Family Medicine Office/Clini c Noteon 11-26-2023 Family [...] tab(s), Oral, Daily, 84 tab(s), Refill(s) 2, [employer] #72, 169.2, cm, 11/26/23 14:58:00 EDT, Height/Length Dosing, 104, kg, 11/26/23 14:58:00 EDT, Weight Dosing desogestrel-ethinyl estradiol, 1 tab(s), Oral, Daily, 28 tab(s), Refill(s) 0, [employer] #72, 169.2, cm, 07/16/23 13:55:00 EST, Height/Length [...] hepatitis B pediatric vaccine 2004 Recorded Normal [facility] Comment on above: Result Comment: Elec tronically Signed By: Tessa WOODS, Sunitha Severino\.br\Date and Time Signed: 11/26/23 15:08 EDT ACETAMINOPHENon 12-02-2021 Acetaminophen [Mass/Vol] ug/mL Normal 10.0-30.0 [facility] Comment on above: Performed By: #### C MP, ACET, SALYC #### [facility] [address] [address] [address] Francis Dennis CBC AUTO DIFFon 12-02-2021 BASO # 0.0 103/ul Normal 0.0-0.1 [facility] Comment on above: Performed By: #### C BC #### [facility] [address] [address] [address] Francis Dennis Basophils/100 WBC (Bld) 0.3 % Normal 0.2-2.0 [facility] Comment on above: Performed By: #### C BC #### [facility] [address] [place] [address] Dr. Francis Dennis EO # 0.1 103/ul Normal 0.0-0.7 [facility] Comment on above: Performed By: #### C BC #### [facility] [address] [place] [address] Dr. Francis Dennis Eosinophils/100 WBC (Bld) 0.8 % Critically low 0.9-7.0 [facility] Comment on above: Performed By: #### C BC #### [facility] [address] [place] [address] Dr. Francis Dennis Erythrocyte distribution width (RBC) [Ratio] 14.5 % Normal 11.0-15.0 [facility] Comment on above: Performed By: #### C BC #### [facility] [address] [place] [address] Dr. Francis Dennis Hematocrit (Bld) [Volume fraction] 40.3 % Normal 36.0-48.0 [facility] Comment on above: Performed By: #### C BC #### [facility] [address] [place] [address] Dr. Francis Dennis Hemoglobin (Bld) [Mass/Vol] 12.6 g/dL Normal 12.0-16.0 [facility] Comment on above: Performed By: #### C BC #### [facility] [address] [place] [address] Dr. Francis Dennis IG # 0.04 10e3/ul Critically high 0.00-0.03 [facility] Comment on above: Performed By: #### C BC #### [facility] [address] [place] [address] Dr. Francis Dennis IG % 0.5 % Normal 0.0-0.5 [facility] Comment on above: Performed By: #### C BC #### [facility] [address] [place] [address] Dr. Francis Dennis LYMPH # 1.4 103/ul Normal 1.2-3.8 [facility] Comment on above: Performed By: #### C BC #### [facility] [address] [place] [address] Dr. Francis Dennis Lymphocytes/100 WBC (Bld) 15.9 % Critically low 20.5-60.0 [facility] Comment on above: Performed By: #### C BC #### [facility] [address] [place] [address] Dr. Francis Dennis MANUAL DIFF REQ NO Normal [facility] Comment on above: Performed By: #### C BC #### [facility] [address] [place] [address] Dr. Francis Dennis MCH (RBC) [Entitic mass] 27.0 pg Normal 26.7-34.0 [facility] Comment on above: Performed By: #### C BC #### [facility] [address] [place] [address] Dr. Francis Dennis MCHC (RBC) [Mass/Vol] 31.3 g/dL Normal 29.9-35.2 [facility] Comment on above: Performed By: #### C BC #### [facility] [address] [place] [address] Dr. Francis Dennis MCV (RBC) [Entitic vol] 86.5 fL Normal 79.1-95.6 [facility] Comment on above: Performed By: #### C BC #### [facility] [address] [place] [address] Dr. Francis Dennis MONO # 0.7 103/ul Normal 0.3-0.8 [facility] Comment on above: Performed By: #### C BC #### [facility] [address] [place] [address] Dr. Francis Dennis Monocytes/100 WBC (Bld) 7.5 % Normal 1.7-12.0 [facility] Comment on above: Performed By: #### C BC #### [facility] [address] [place] [address] Dr. Francis Dennis NEUT # 6.7 103/ul Critically high 1.4-6.5 [facility] Comment on above: Performed By: #### C BC #### [facility] [address] [address] [address] Francis Dennis Neutrophils/100 WBC (Bld) 75.0 % Normal 43.0-75.0 [facility] Comment on above: Performed By: #### C BC #### [facility] [address] [address] [address] Frnacis Dennis Platelet mean volume (Bld) [Entitic vol] 9.2 fL Critically low 9.5-13.5 [facility] Comment on above: Performed By: #### C BC #### [facility] [address] [place] [address] Dr. Francis Dennis PLT 287 103/ul Normal 150-450 [facility] Comment on above: Performed By: #### C BC #### [facility] [address] [place] [address] Dr. Francis Dennis RBC 4.66 106/ul Normal 3.40-5.30 [facility] Comment on above: Performed By: #### C BC #### [facility] [address] [place] [address] Dr. Francis Dennis WBC 8.9 103/ul Normal 4.0-11.0 [facility] Comment on above: Performed By: #### C BC #### [facility] [address] [place] [address] Dr. Francis Dennis DRUG SCREEN RAPID (URINE)on 12-02-2021 AMP Negative Normal NEGATIVE [facility] Comment on above: Performed By: #### C VDTBH CVDAGS #### [facility] [address] [place] [address] Beti Lilian BAR Negative Normal NEGATIVE [facility] Comment on above: Performed By: #### C VDTBH, CVDAGS #### [facility] [address] [place] [address] Beti Lilian BUP Negative Normal NEGATIVE [facility] Comment on above: Performed By: #### C VDTBH, CVDAGS #### [facility] [address] [place] [address] Beti Lilian BZO Negative Normal NEGATIVE [facility] Comment on above: Performed By: #### C CATIA CVDAGS #### [facility] [address] [place] [address] Beti Lilian LACY Negative Normal NEGATIVE [facility] Comment on above: Performed By: #### C VDTBKai CVDAGS #### [facility] [address] [place] [address] CUT-OFFS SEE BELOW Normal [facility] Comment on above: Result Comment: AMP (Amphetamine): 500ng/mL, BAR (Barbituates): 200 ng/mL, BZO (Benzodiazepines): 150 ng/mL, BUP (Buprenorphine): 10 ng/mL, LACY (Cocaine): 150 ng/mL, mAMP (Methamphetamine): 500 ng/mL, MTD (Methadone): 200 ng/mL, OPI (Opiates): 100 ng/mL, OXY (Oxycodone): 100 ng/mL, PCP (Phencyclidine): 25 ng/mL, PPX (Propoxyphene): 300 ng/mL, THC (Cannabinoids): 50 ng/mL, TCA (Trycyclic Antidepressants): 300 ng/mL Performed By: #### C CATIA CVDAGS #### [facility] [address] [place] [address] DRUG CUT HEADER DRUG CLASS TEST SYSTEM CUT-OFF CONCENTRATIONS ARE FOLLOWS: Normal [facility] Comment on above: Performed By: #### C CATIA CVDAGS #### [facility] [address] [place] [address] Beti Lilian mAMP Negative Normal NEGATIVE [facility] Comment on above: Performed By: #### C CATIA CVDAGS #### [facility] [address] [place] [address] Beti Lilian MTD Negative Normal NEGATIVE [facility] Comment on above: Performed By: #### C VDTBKai CVDAGS #### [facility] [address] [place] [address] Beti Lilian OPI Negative Normal NEGATIVE [facility] Comment on above: Performed By: #### C VDTBH, CVDAGS #### [facility] [address] [address] Beti Lilian OXY Negative Normal NEGATIVE [facility] Comment on above: Performed By: #### C VDTBH, CVDAGS #### [facility] [address] [address] Beti Lilian PCP Negative Normal NEGATIVE [facility] Comment on above: Performed By: #### C VDTBH, CVDAGS #### [facility] [address] [place] [address] Beti Lilian PPX Negative Normal NEGATIVE [facility] Comment on above: Performed By: #### C VDTBH, CVDAGS #### [facility] [address] [place] [address] Beti Lilian TCA Positive Abnormal NEGATIVE [facility] Comment on above: Performed By: #### C VDTBH, CVDAGS #### [facility] [address] [place] [address] Beti Lilian THC Negative Normal NEGATIVE [facility] Comment on above: Performed By: #### C VDTBH, CVDAGS #### [facility] [address] [place] [address] Beti Lilian ER URINE PROFILEon 2 Bilirubin Ql (U) Negative Normal NEGATIVE [facility] Comment on above: Performed By: #### C VDTBH, CVDAGS #### [facility] [address] [place] [address] Beti Lilian Clarity (U) CLEAR Normal CLEAR [facility] Comment on above: Performed By: #### C VDTBH, CVDAGS #### [facility] [address] [place] [address] Beti Lilian Color (U) YELLOW Normal YELLOW [facility] Comment on above: Performed By: #### C VDTBH, CVDAGS #### [facility] [address] [place] [address] Beti Lilian ERUAHD A micrscopic examination will be performed if indicated. Normal [facility] Comment on above: Performed By: #### C CATIA CVDAGS #### [facility] [address] [place] [address] Beti Lilian Glucose Ql (U) Negative Normal NEGATIVE [facility] Comment on above: Performed By: #### C CATIA CVDAGS #### [facility] [address] [place] [address] Beti Lilian Hemoglobin Ql (U) Negative Normal NEGATIVE [facility] Comment on above: Performed By: #### C CATIA CVDAGS #### [facility] [address] [place] [address] Beti Lilian Ketones Ql (U) Negative Normal NEGATIVE [facility] Comment on above: Performed By: #### C CATIA CVDAGS #### [facility] [address] [place] [address] Beti Lilian LEUKOCYTES Negative Normal NEGATIVE [facility] Comment on above: Performed By: #### C CATIA CVDAGS #### [facility] [address] [place] [address] Beti Lilian Nitrite Ql (U) Negative Normal NEGATIVE [facility] Comment on above: Performed By: #### C ARACELI BARDALESAGS #### [facility] [address] [place] [address] Beti Lilian pH (U) 6.0 [pH] Normal 5-9 [facility] Comment on above: Performed By: #### Teetee BARDALES CVDAGS #### [facility] [address] [place] [address] Beti Lilian SPEC GRAVITY 1.025 Normal 1.005-<=1.025 [facility] Comment on above: Performed By: #### C CATIA CVDAGS #### [facility] [address] [place] [address] Beti Lilian UA PROTEIN Negative Normal NEGATIVE/ TRACE [facility] Comment on above: Performed By: #### C CATIA CVDAGS #### [facility] [address] [place] [address] Beti Lilian UR MICRO IND NOT INDICATED Normal [facility] Comment on above: Performed By: #### C VDTBH, CVDAGS #### [facility] [address] [place] [address] Beti Quintana Urobilinogen Qn (U) 0.2 {Clara'U}/dL Normal 0.2 - 1. 0 [facility] Comment on above: Performed By: #### C VDTBH, CVDAGS #### [facility] [address] [place] [address] Beti Quintana ETHANOL (BLD ALC)on 12-03-19 22 ALC NOTE NOTE: 80 mg/dl is the legal limit for a blood alcohol level Normal [facility] Comment on above: Performed By: #### E TH #### [facility] [address] [place] [address] Dr. Francis Dennis Ethanol [Mass/Vol] mg/dL Normal [facility] Comment on above: Performed By: #### E TH #### [facility] [address] [place] [address] Dr. Francis Dennis PREG HCG QUALon 12-02-2021 , QUAL Negative Normal NEGATIVE [facility] Comment on above: Performed By: #### P REG #### [facility] [address] [place] [address] Dr. Francis Dennis URon 12-02-2021 , QUAL Negative Normal NEGATIVE [facility] Comment on above: Performed By: #### P REGU, ERUR, DRUGRPD #### [facility] [address] [place] [address] Dr. Francis Dennis PROF 14(COMP METB)on 022 Albumin [Mass/Vol] 4.2 g/dL Normal 3.4-5.0 [facility] Comment on above: Performed By: #### C MP, ACET, SALYC #### [facility] [address] [place] [address] Dr. Francis Dennis Albumin/Globulin [Mass ratio] 1.2 {ratio} Normal [facility] Comment on above: Performed By: #### C MP, ACET, SALYC #### [facility] [address] [address] [address] Francis Dennis ALP [Catalytic activity/Vol] 85 U/L Normal 65-260 [facility] Comment on above: Performed By: #### C MP, ACET, SALYC #### [facility] [address] [address] [address] Francis Dennis ALT [Catalytic activity/Vol] 30 U/L Normal 14-59 [facility] Comment on above: Performed By: #### C MP, ACET, SALYC #### [facility] [address] [address] [address] Francis Dennis Anion gap [Moles/Vol] 10.4 mmol/L Normal [facility] Comment on above: Performed By: #### C MP, ACET, SALYC #### [facility] [address] [address] [address] Francis Dennis AST [Catalytic activity/Vol] 20 U/L Normal 15-37 [facility] Comment on above: Performed By: #### C MP, ACET, SALYC #### [facility] [address] [address] [address] Francis Dennis Bilirubin [Mass/Vol] 0.2 mg/dL Normal 0.2-1.0 [facility] Comment on above: Performed By: #### C MP, ACET, SALYC #### [facility] [address] [address] [address] Francis Dennis Calcium [Mass/Vol] 8.9 mg/dL Normal 8.5-10.1 [facility] Comment on above: Performed By: #### C MP, ACET, SALYC #### [facility] [address] [address] [address] Francis Dennis Chloride [Moles/Vol] 103 mmol/L Normal 98-107 [facility] Comment on above: Performed By: #### C MP, ACET, SALYC #### [facility] [address] [address] [address] Francis Dennis CO2 [Moles/Vol] 31.8 mmol/L Normal 21.0-32.0 [facility] Comment on above: Performed By: #### C MP, ACET, SALYC #### [facility] [address] [place] [address] Dr. Francis Dennis Creatinine [Mass/Vol] 0.96 mg/dL Normal 0.55-1.02 [facility] Comment on above: Performed By: #### C MP, ACET, SALYC #### [facility] [address] [address] [address] Francis Dennis EGFR-AF AFGHAN >60 Normal >=60 [facility] Comment on above: Performed By: #### C MP, ACET, SALYC #### [facility] [address] [place] [address] Dr. Francis Dennis EGFR-NON AF AFGHAN >60 Normal >=60 [facility] Comment on above: Performed By: #### C MP, ACET, SALYC #### [facility] [address] [place] [address] Dr. Francis Dennis Globulin (S) [Mass/Vol] 3.4 g/dL Normal [facility] Comment on above: Performed By: #### C MP, ACET, SALYC #### [facility] [address] [place] [address] Dr. Francis Dennis Glucose [Mass/Vol] 90 mg/dL Normal 74-106 [facility] Comment on above: Performed By: #### C MP, ACET, SALYC #### [facility] [address] [place] [address] Dr. Francis Dennis Potassium [Moles/Vol] 4.2 mmol/L Normal 3.5-5.1 [facility] Comment on above: Performed By: #### C MP, ACET, SALYC #### [facility] [address] [place] [address] Dr. Francis Dennis Protein [Mass/Vol] 7.6 g/dL Normal 6.1-8.2 [facility] Comment on above: Performed By: #### C MP, ACET, SALYC #### [facility] [address] [place] [address] Dr. Francis Dennis Sodium [Moles/Vol] 141 mmol/L Normal 136-145 [facility] Comment on above: Performed By: #### C KAITLYN ACET, SALYC #### [facility] [address] [address] [address] Francis Dennis Urea nitrogen [Mass/Vol] 8.0 mg/dL Normal 6.4-19.3 [facility] Comment on above: Performed By: #### C KAITLYN ACET, SALYC #### [facility] [address] [address] [address] Francis Dennis Urea nitrogen/Creatinine [Mass ratio] 8.3 mg/mg Normal [facility] Comment on above: Performed By: #### C KAITLYN ACET, SALYC #### [facility] [address] [place] [address] Dr. Francis Dennis SALICYLATEon 12-02-2021 SALICYLATE <2.8 Normal <=20.0 [facility] Comment on above: Performed By: #### C KAITLYN ACET, SALYC #### [facility] [address] [place] [address] Dr. Francis Dennis Acetaminophenon 05-16-2021 Acetaminophen [Mass/Vol] 11.9 ug/mL Normal 10.0-30.0 [facility] Comment on above: Result Comment: PERF ORMED BY: [place] [address] PATHOLOGIST AIRPLANE MECHANIC APPRENTICE MARGOT GALAN M.D. Performed By: #### A JEN JADE [facility] [place] #### [address] COVID-19 Antigenon 1 COVID-19 Antigen Healthcare [...] Disclaimer consistent with COVID-19. COVID19 Blank Space Maul Disclaimer The [facility] SARS Antigen CHRISTINE does not differentiate Malu Disclaimer between SARS-CoV and SARS-CoV-2. COVID19 Blank Space [facility] Disclaimer This test was developed and its performance Malu Disclaimer characteristic determined by [employer] and Malu Disclaimer validated at [facility]. This [facility] Disclaimer test has not been [...] is terminated or revoked sooner. PERFORMED BY: [place] [address] PATHOLOGIST AIRPLANE MECHANIC APPRENTICE MARGOT GALAN M.D. [facility] Comment on above: Performed By: #### C OVID-19 MALU, SOFIANEG #### [address] ECG 12 lead ECGon 05-16-2021 ECG 12 lead ECG [facility] [place] [address] [place] [address] Electrocardiograph Report Signed Patient: Camille Richards MR#: [id number] 2 : 2005 Acct:[id number] Age/Sex: 15 / F ADM Date: 05/15/21 Loc: ER Room: Type: [facility] ER Attending Dr: Ordering Provider: Francisco [...] ECGs available Confirmed by Francisco Ba DO ([id number]) on 05/16/2021 1:49:03 AM Referred By: Electronically Signed By:Francisco Ba DO Transcribed By: MUS Signed By Francisco Ba DO 1 0149 [facility] Ag Negativeon 10-07-20 21 [place] Ag Negative Negative Normal Negative [facility] Comment on above: Result Comment: This is a duplicate [facility] SARS Antigen (CHRISTINE) result to be used for statistical tracking purpose only. PERFORMED BY: [place] [address] PATHOLOGIST AIRPLANE MECHANIC APPRENTICE MARGOT GALAN M.D. Performed By: #### C OVID-19 MALU, SOFIANEG #### [address] Acetaminophenon 05-15-2021 Acetaminophen [Mass/Vol] 32.2 ug/mL High 10.0-30.0 [facility] Comment on above: Result Comment: 4 ho urs after dose, critical > 150 12 hours after dose, critical > 40 PERFORMED BY: [place] [address] PATHOLOGIST [employer]CH[employer] APPRENTICE MARGOT GALAN M.D. Performed By: #### S AL, ACET #### [address] Complete Blood Count Auto Di ffon 05-15-2021 Basophils (Bld) [#/Vol] 0.1 10*3/uL Normal 0.0-0.1 [facility] Comment on above: Result Comment: PERF ORMED BY: [place] [address] PATHOLOGIST [employer]PL[employer] MECHAN[employer] APPRENTICE MARGOT GALAN M.D. Performed By: #### C BC, CMP, ETOH #### [place] [address] [place] Basophils/100 WBC (Bld) 0.6 % Normal . [facility] Comment on above: Performed By: #### C BC, CMP, ETOH #### [place] [address] [place] Eosinophils (Bld) [#/Vol] 0.0 10*3/uL Normal 0.0-0.7 [facility] Comment on above: Performed By: #### C BC, CMP, ETOH #### [place] [address] [place] Eosinophils/100 WBC (Bld) 0.3 % Normal . [facility] Comment on above: Performed By: #### C BC, CMP, ETOH #### [address] Erythrocyte distribution width (RBC) [Ratio] 13.4 % Normal 11.9-15.3 [facility] Comment on above: Performed By: #### C BC, CMP, ETOH #### [address] Hematocrit (Bld) [Volume fraction] 40.9 % Normal 36.0-46.0 [facility] Comment on above: Performed By: #### C BC, CMP, ETOH #### [address] Hemoglobin (Bld) [Mass/Vol] 13.6 g/dL Normal 12.0-16.0 [facility] Comment on above: Performed By: #### C BC, CMP, ETOH #### [address] Lymphocytes (Bld) [#/Vol] 1.6 10*3/uL Normal 1.20-4.8 [facility] Comment on above: Performed By: #### C BC, CMP, ETOH #### [address] Lymphocytes/100 WBC (Bld) 12.2 % Normal . [facility] Comment on above: Performed By: #### C BC, CMP, ETOH #### [address] MCH (RBC) [Entitic mass] 28.6 pg Normal 25.0-35.0 [facility] Comment on above: Performed By: #### C BC, CMP, ETOH #### [address] MCV (RBC) [Entitic vol] 86.2 fL Normal 78-102 [facility] Comment on above: Performed By: #### C BC, CMP, ETOH #### [address] Mean Corpuscular HGB Conc 33.2 g/dL Normal 31.0-37.0 [facility] Comment on above: Performed By: #### C BC, CMP, ETOH #### [facility] [address] [place] [address] [place] Monocytes (Bld) [#/Vol] 0.9 10*3/uL Normal 0.1-1.00 [facility] Comment on above: Performed By: #### C BC, CMP, ETOH #### [facility] [address] [place] [address] [place] Monocytes/100 WBC (Bld) 6.8 % Normal . [facility] Comment on above: Performed By: #### C BC, CMP, ETOH #### [facility] [address] Neutrophils (Bld) [#/Vol] 10.4 10*3/uL High 1.2-7.7 [facility] Comment on above: Performed By: #### C BC, CMP, ETOH #### [place] [address] [place] Neutrophils/100 WBC (Bld) 80.1 % Normal . [facility] Comment on above: Performed By: #### C BC, CMP, ETOH #### [place] [address] [place] Nucleated RBC/100 WBC (Bld) [Ratio] 0.0 % Normal 0-0.5 [facility] Comment on above: Performed By: #### C BC, CMP, ETOH #### [facility] [address] [place] [address] [place] Platelet mean volume (Bld) [Entitic vol] 7.5 fL Normal 6.3-10.7 [facility] Comment on above: Performed By: #### C BC, CMP, ETOH #### [facility] [address] [place] [address] [place] Platelets (Bld) [#/Vol] 301 10*3/uL Normal 150-450 [facility] Comment on above: Performed By: #### C BC, CMP, ETOH #### [facility] [address] [place] [address] RBC (Bld) [#/Vol] 4.74 10*6/uL Normal 4.10-5.10 [facility] Comment on above: Performed By: #### C BC, CMP, ETOH #### [address] WBC (Bld) [#/Vol] 13.0 10*3/uL Normal 4.5-13.5 [facility] Comment on above: Performed By: #### C BC, CMP, ETOH #### [address] Comprehensive Metabolic Pane santos 05-15-2021 Albumin [Mass/Vol] 4.2 g/dL Normal 3.2-5.5 [facility] Comment on above: Performed By: #### C BC, CMP, ETOH #### [address] Albumin/Globulin [Mass ratio] 1.7 {ratio} Normal [facility] Comment on above: Performed By: #### C BC, CMP, ETOH #### [address] ALP [Catalytic activity/Vol] 55 U/L Low 67-372 [facility] Comment on above: Performed By: #### C BC, CMP, ETOH #### [address] ALT [Catalytic activity/Vol] 36 U/L Normal 10-60 [facility] Comment on above: Performed By: #### C BC, CMP, ETOH #### [address] AST [Catalytic activity/Vol] 26 U/L Normal 10-42 [facility] Comment on above: Performed By: #### C BC, CMP, ETOH #### [address] Bilirubin [Mass/Vol] 0.6 mg/dL Normal 0.3-1.2 [facility] Comment on above: Performed By: #### C BC, CMP, ETOH #### [facility] [address] Calcium [Mass/Vol] 9.5 mg/dL Normal 8.2-10.2 [facility] Comment on above: Performed By: #### C BC, CMP, ETOH #### [facility] [address] [place] [address] [place] Chloride [Moles/Vol] 100 mmol/L Normal 95-114 [facility] Comment on above: Performed By: #### C BC, CMP, ETOH #### [facility] [address] CO2 [Moles/Vol] 25.9 mmol/L Normal 22.0-30.0 [facility] Comment on above: Performed By: #### C BC, CMP, ETOH #### [address] Creatinine [Mass/Vol] 0.83 mg/dL Normal 0.44-1.03 [facility] Comment on above: Performed By: #### C BC, CMP, ETOH #### [facility] [address] [place] [address] [place] Creatinine Clr Calc Pharmacy 120.35 [facility] Comment on above: Result Comment: PERF ORMED BY: [place] [address] PATHOLOGIST [employer] MECH[employer] APPRENTICE MARGOT GALAN M.D. Performed By: #### C BC, CMP, ETOH #### [place] [address] [place] Globulin (S) [Mass/Vol] 2.5 g/dL Normal [facility] Comment on above: Performed By: #### C BC, CMP, ETOH #### [place] [address] [place] Glucose [Mass/Vol] 98 mg/dL Normal 70-100 [facility] Comment on above: Result Comment: [place] Glucose Reference Range is dependent on time and content of last meal. Glucose of more than 200 mg/dL in a nonstressed, ambulatory subject supports the diagnosis of Diabetes Mellitus. ADA recommended reference range Performed By: #### C BC, CMP, ETOH #### [facility] [address] [place] [address] [place] Potassium [Moles/Vol] 3.8 mmol/L Normal 3.5-5.1 [facility] Comment on above: Performed By: #### C BC, CMP, ETOH #### [facility] [address] [place] [address] [place] Protein [Mass/Vol] 6.7 g/dL Normal 6.1-7.9 [facility] Comment on above: Performed By: #### C BC, CMP, ETOH #### [facility] [address] [place] [address] [place] Sodium [Moles/Vol] 138 mmol/L Normal 138-145 [facility] Comment on above: Performed By: #### C BC, CMP, ETOH #### [place] [address] [place] Urea nitrogen [Mass/Vol] 10 mg/dL Normal 9-23 [facility] Comment on above: Performed By: #### C BC, CMP, ETOH #### [place] [address] [place] Dipstick and Microscopicon 1 Appearance (U) Slightly Cloudy Critically abnormal Clear [facility] Comment on above: Order Comment: Name Collection Type:: Clean-Voided Midstream Performed By: #### A DDONUAPLUS, URDS, UHCG #### [facility] [address] [place] [address] [place] Bacteria,Urine 2+ High None Seen [facility] Comment on above: Order Comment: Name Collection Type:: Clean-Voided Midstream Performed By: #### A DDONUAPLUS, URDS, UHCG #### [place] [address] [place] Bilirubin,Urine 1+ High Negative [facility] Comment on above: Order Comment: Name Collection Type:: Clean-Voided Midstream Performed By: #### A DDONUAPLUS, URDS, UHCG #### [facility] [address] Color (U) Yellow Normal Yellow [facility] Comment on above: Order Comment: Name Collection Type:: Clean-Voided Midstream Performed By: #### A DDONUAPLUS, URDS, UHCG #### [facility] [address] [place] [address] Glucose Ql (U) Normal Normal Normal [facility] Comment on above: Order Comment: Name Collection Type:: Clean-Voided Midstream Performed By: #### A DDONUAPLUS, URDS, UHCG #### [address] Ketones Ql (U) 1+ High Negative [facility] Comment on above: Order Comment: Name Collection Type:: Clean-Voided Midstream Performed By: #### A DDONUAPLUS, URDS, UHCG #### [facility] [address] [place] [address] Leukocyte esterase Test strip Ql (U) Negative Normal Negative [facility] Comment on above: Order Comment: Name Collection Type:: Clean-Voided Midstream Performed By: #### A DDONUAPLUS, URDS, UHCG #### [facility] [address] [place] [address] Mucus,Urine 2+ Critically abnormal [facility] Comment on above: Order Comment: Name Collection Type:: Clean-Voided Midstream Performed By: #### A DDONUAPLUS, URDS, UHCG #### [facility] [address] [place] [address] [place] Nitrite,Urine Negative Normal Negative [facility] Comment on above: Order Comment: Name Collection Type:: Clean-Voided Midstream Performed By: #### A DDONUAPLUS, URDS, UHCG #### [facility] [address] [place] [address] Occult Blood,Urine Negative Normal Negative [facility] Comment on above: Order Comment: Name Collection Type:: Clean-Voided Midstream Performed By: #### A DDONUAPLUS, URDS, UHCG #### [address] pH (U) 5.5 [pH] Normal 5.0-9.0 [facility] Comment on above: Order Comment: Name Collection Type:: Clean-Voided Midstream Performed By: #### A DDONUAPLUS, URDS, UHCG #### [address] Protein (U) [Mass/Vol] 30 mg/dL High Negative [facility] Comment on above: Order Comment: Name Collection Type:: Clean-Voided Midstream Performed By: #### A DDONUAPLUS, URDS, UHCG #### [address] RBC LM.HPF (Urine sed) [#/Area] 0 /[HPF] Normal 0-4 [facility] Comment on above: Order Comment: Name Collection Type:: Clean-Voided Midstream Performed By: #### A DDONUAPLUS, URDS, UHCG #### [address] Specificy [place],Urine 1.030 Normal 1.001-1.030 [facility] Comment on above: Order Comment: Name Collection Type:: Clean-Voided Midstream Performed By: #### A DDONUAPLUS, URDS, UHCG #### [address] Squamous Epithelial Cell,Urine 5-9 High 0-2 [facility] Comment on above: Order Comment: Name Collection Type:: Clean-Voided Midstream Performed By: #### A DDONUAPLUS, URDS, UHCG #### [address] Urobilinogen,Urine Normal Normal Normal [facility] Comment on above: Order Comment: Name Collection Type:: Clean-Voided Midstream Performed By: #### A DDONUAPLUS, URDS, UHCG #### [address] WBC,Urine 3-4 Normal 0-4 [facility] Comment on above: Order Comment: Name Collection Type:: Clean-Voided Midstream Performed By: #### A DDONUAPLUS, URDS, UHCG #### [address] Drug Screen,Urineon 05-15-20 21 Amphetamine Screen,Urine Negative Normal Negative [facility] Comment on above: Performed By: #### A DDONUAPLUS, URDS, UHCG #### [place] [address] [place] Barbiturate Screen,Urine Negative Normal Negative [facility] Comment on above: Performed By: #### A DDONUAPLUS, URDS, UHCG #### [address] Benzodiazepines Screen,Urine Negative Normal Negative [facility] Comment on above: Performed By: #### A DDONUAPLUS, URDS, UHCG #### [address] Cannabinoid Screen,Urine Negative Normal Negative [facility] Comment on above: Result Comment: Thes e are unconfirmed results and should not be used for legal purposes. Drug Cut-Off Concentration: AMPH 1000 ng/mL CHENCHO 200 ng/mL ANNI 200 ng/mL COCM 300 ng/mL OP 300 ng/mL PCP 25 ng/mL THC 20 ng/mL PERFORMED BY: [place] [address] PATHOLOGIST [employer] MECH[employer] APPRENTICE MARGOT GALAN M.D. Performed By: #### A DDONUAPLUS, URDS, UHCG #### [address] Cocaine Screen,Urine Negative Normal Negative [facility] Comment on above: Performed By: #### A DDONUAPLUS, URDS, UHCG #### [address] Opiate Screen,Urine Negative Normal Negative [facility] Comment on above: Performed By: #### A DDONUAPLUS, URDS, UHCG #### [address] Phencyclidine Screen,Urine Negative Normal Negative [facility] Comment on above: Performed By: #### A DDONUAPLUS, URDS, UHCG #### [address] Ethyl Alcohol Profileon Ethanol [Mass/Vol] mg/dL Normal [facility] Comment on above: Performed By: #### C BC, CMP, ETOH #### [address] Percent Ethanol Not performed Normal [facility] Comment on above: Result Comment: PERF ORMED BY: [place] [address] PATHOLOGIST [employer]PL[employer] MECHAN[employer] APPRENTICE MARGOT GALAN M.D. Performed By: #### C BC, CMP, ETOH #### [address] HCG,Urineon 05-15-2021 Beta HCG ( test) Ql (U) Negative Normal [facility] Comment on above: Order Comment: Name Collection Type:: Clean-Voided Midstream Result Comment: PERF ORMED BY: [place] [address] PATHOLOGIST [employer]PL[employer] MECHAN[employer] APPRENTICE MARGOT GALAN M.D. Performed By: #### A DDONUAPLUS, URDS, UHCG #### [address] Salicylateon 05-15-2021 Salicylate < 4.0 Low 15.0-30.0 [facility] Comment on above: Result Comment: Velia ents treated with Sulfasalazine may generate a false high result for Salicylate. Patients treated with Sulfapyridine may generate a false low result for Salicylate. Performed By: #### S AL, ACET #### [address] Covid-19 PCR (CVDTBH)on SARS-CoV-2 (COVID-19) RNA ABHIJEET+probe Ql (Unsp spec) Not detected Normal NOT DETECTED [facility] Comment on above: Result Comment: This test is not yet approved or cleared by the [place] FDA. When there are no FDA-approved or cleared tests available, and other criteria are met, FDA can make tests available under an emergency access mechanism called an Emergency Use Authorization (EUA). The EUA for this test is supported by the Dance [employer] of Health and Human Service's (HHS's) declaration [...] consistent with SARS-CoV-2. Performed By: #### C CATIA, RODRIGUEZS #### [facility] [address] [place] [address] Beti Quintana SYMPTOMATIC COVID-19 ANTIGEN on 04-10-2021 EUA Statement SEE BELOW Normal [facility] Comment on above: Result Comment: This test [...] is revoked sooner. Performed By: #### C VDTBKai, CVDISACS #### [facility] [address] [place] [address] Beti Quintana SARS-CoV-2 (COVID-19) RNA ABHIJEET+probe Ql (Unsp spec) Negative Normal NEGATIVE [facility] Comment on above: Result Comment: CONF IRMATION BY PCR PENDING PER CDC GUIDELINES/ SYMPTOMATIC PATIENT. Performed By: #### C VDTBH, CVDAGS #### [facility] [address] [place], [place] [address] Beti Quintana Encounters Encounter Date Encounter Type Care Provider Facility Start: 09-08-2025 ambulatory [employer]EL[employer] Sunitha L Tessa Facil ity: [facility] Start: 09-09-2024 End: 09-09-2024 ambulatory [employer]ELOPER Sunitha L Tessa Facility: [facility] Start: 08-31-2024 End: 08-31-2024 ambulatory [employer] DEVELOPER Sunitha L Tessa Facility: [facility] Start: 08-25-2024 End: 08-25-2024 ambulatory [employer] DEVELOPER Sunitha L Tessa Facility: [facility] Start: 11-26-2023 End: 11-26-2023 ambulatory [employer] DEVELOPER Sunitha L Tessa Facility: [facility] Start: 10-02-2023 End: 10-02-2023 ambulatory [employer]ELOPER Sunitha L Tessa Facility: [facility] Start: 09-22-2023 ambulatory [employer]ELOPER Sunitha Tessa Facilit y: [facility] Start: 12-02-2021 End: 12-02-[address] KELVIN CARIAS Facility:[facility] Start: 08-29-2021 End: 08-29-[address] KELVIN CARIAS Facility:[facility] Start: 04-10-2021 End: 04-11-[address] KELVIN CARIAS Facility:[facility] Payers Date Payer Category Payer Private Health Insurance [id number] 2024 Self-pay 2023 Private Health Insurance [id number] 2004 Unknown [id number] 2.16.8 [id number] 2004 Unknown [id number] 2.16.8 [id number] 2004 Unknown [id number] 2.16.8 [id number] 2004 Unknown [id number] 2.16.8 [id number] 2004 Unknown [id number] 2.16.8 [id number] 2004 Unknown [id number] 2.16.8 [id number] 1980 Unknown [id number] 2.16.84 [id number] 1980 Unknown [id number] 2.16.84 [id number] 1980 Unknown [id number] 2.16.84 [id number] 1959 Unknown [id number] Clinical Note 08-29-2021 Note Date & Type [...] authenticated by: JOSSELYN BONILLA Date: 2021-08-29 08:13 [facility] Summary Purpose Family History No Family History Records FoundNo Family History Records FoundNo Family History Records Found Advance Directives No Advanced Directives Records FoundNo Advanced Directives Records FoundNo Advanced Directives Records Found Additional Source Comments INFORMATION SOURCE (unrecogn ized section and content) DATE CREATED AUTHOR 09/03/2021 [facility] DATE CREATED AUTHOR AUTHOR'S ORGANIZ ATION 12/08/2021 [facility] DATE CREATED AUTHOR AUTHOR'S ORGANIZ ATION 09/11/2024 [facility] FOR RECORDS PERTAINING TO PATIENTS WHO ARE [...] BE BASED ON THE PRIMARY CLINICAL RECORDS. [employer] [facility]. provides no warranty or guarantee of the accuracy or completeness of information in this document.
[2024-11-26 09:58] LABS: Estimated Average Glucose 108 mg/dL; Glycohemoglobin A1C 5.4 % (4.5-6.2)
[2024-11-26 09:59] LABS: Chol HDL Ratio 2.6; Cholesterol 137 mg/dL (<=200); HDL Cholesterol 53 mg/dL (40-60); LDL Cholesterol Calculated 75.6 mg/dL; Triglycerides 42 mg/dL (<=150); VLDL CHOLESTEROL 8.4 mg/dL
== END 2024-11-26 09:29 | disposition home or self-care (01) ==
LOC: LAB 09:28
PROVIDERS: PCP Nurse Practitioner
DX: Z79.899 Other long term (current) drug therapy (principal)
CPT/HCPCS: 36415; 80061; 83036

== ENCOUNTER 2025-07-20 18:36 | Emergency (ER) | payer SELFPAY ==
--- OUTSIDE RECORDS SUMMARY | 2024-01-29 11:00 | XMS_ITS ---
Author Organization [facility] Address [address] [facility] [place] [address] Care Team Providers Care [employer] Missile System Crewmember Name Role Phone Karlene Zambrano Primary Care Provider [phone] REASON FOR VISIT bh f/u Encounters Encounter Location Date Provider Diagnosis [facility] [address] [facility] [place] [address] 01/29/2024 Karlene Zambrano Plan Of Treatment No Information Progress Notes * ROLY HUNTB:2005 ( 19 yo F)Acc No.[id number]:01/29/2024 Behavioral Health Patient: CAMILLE MANZO :?Karlene ZambranoDOB:2005???Age:18 Y???Sex:Female Date:01/29/2024hone:[phone]:[address] [id number] Subjective: * Chief Complaints: * B h f/u * Electronic signature of YSABEL Cantu on 07/20/2025 at 08:06 PM ESTSign off status: Pending * Provider: Teetee Zambrano Date: 0 01/29/2024 Generated for Printing/Faxing/eTransmitting on:?07/20/2025 08:06 PM EST
--- OUTSIDE RECORDS SUMMARY | 2024-03-01 11:15 | XMS_ITS ---
Author Organization [facility] Address [address] [facility] [place] [place] [address] Care Team Providers Care Emergency Department Technician Name Role Phone Karlene Zambrano Primary Care Provider [phone] REASON FOR VISIT bh-f/u Encounters Encounter Location Date Provider Diagnosis [facility] [address] [facility] [place] [address] 03/01/2024 Karlene Zambrano Plan Of Treatment No Information Progress Notes * ROLY HUNTB:2005 ( 19 yo F)Acc No.[id number]:03/01/2024 Behavioral Health Patient: Marbin FLYCAMILLE :?Karlene ZambranoDOB:2005???Age:18 Y???Sex:Female Date:03/01/2024hone:[phone]:[address] [id number] Subjective: * Chief Complaints: * B h-f/u * Electronic signature of YSABEL Cantu on 07/20/2025 at 08:07 PM ESTSign off status: Pending * Provider: Teetee Zambrano Date: 0 03/01/2024 Generated for Printing/Faxing/eTransmitting on:?07/20/2025 08:07 PM EST
--- OUTSIDE RECORDS SUMMARY | 2024-03-31 10:40 | XMS_ITS ---
Author Organization [facility] Address [address] [place] [address] Care Team Providers Care Pest Locator Name Role Phone Sunitha Ryan Primary Care Provider Unavail Elizabeth Glasgow Unavailable [phone] REASON FOR VISIT 6 week f/u Encounters Encounter Location Date Provider Diagnosis [facility] ([facility]) [address] [place] [address] [place] [address] 03/31/2024 Elizabeth Suarez Plan Of Treatment No Information Progress Notes * MAURICE JulietteB:2005 ( 19 yo F)Acc No.[id number]:03/31/2024 UNLOCKED PROGRESS NOTE Patient:?Odette HUNT :?ELOY De La CruzOB:2005???Age:18 Y ???Sex:FemaleDate:03/31/2024hone:[phone]:[address] [place], [place]Pcp:MARVA Marte Subjective: * Chief Complaints: * 1 . 6 week f/u. * Medical History: Objective: * Vitals: Assessment: Plan: * Treatment: * * Electronic signature of Elizabeth Suarez PA-C on 07/20/2025 at 08:07 PM ESTSign off status: PendingVisit Status:?N/S N/C (No Show/No Charge) * Provider: Marti Suarez PA-C Date: 0 03/31/2024 Generated for Printing/Faxing/eTransmitting on:?07/20/2025 08:07 PM EST
[2025-07-20 18:48] VITALS: BP 132/65; PULSE 86; TEMP 37.7; O2SAT 94; BMI 37.1
--- OUTSIDE RECORDS SUMMARY | 2025-07-20 20:05 | XMS_ITS | CCD ---
Author Organization [facility] Care Team Providers Care Labor Supervisor Name Role Phone JV, DR KELVIN Tenorio [...] Unavailable PAY, DR CARUSO Attending Unavailable Tessa, SR. MANAGER MARKETING Sunitha L Attending Unavailable Tessa, SR. MANAGER MARKETING Sunitha L Attending Unavailable Tessa, SR. MANAGER MARKETING Sunitha L Attending Unavailable Tessa, SR. MANAGER MARKETING Sunitha L Attending Unavailable Tessa, SR. MANAGER MARKETING Sunitha L Attending Unavailable Tessa, SR. MANAGER MARKETING Sunitha L Attending Unavailable Problems Active Problems Problem ClassificationProblemDateDocumented DateEpisodic/ChronicAnxiety disorders (1 source)Other specified anxiety disorders; Translations: [OTHER SPECIFIED ANXIETY DISORDERS]Onset: 44-11-0735EiekzsmPfwz disorders (1 source)Major depressive disorder, single episode, unspecified; Translations: [ARTURO DEPRESS D/O SINGLE EPIS UNS]Onset: 56-90-5742BoiakvqSivexhdtsmf disorders (1 source)Personality disorder, unspecified; Translations: [PERSONALITY DISORDER UNSPECIFIED]Onset: 93-64-5064CcuuzdnDqsgspu and intentional self-inflicted injury (4 sources)Suicidal ideations; Translations: [SUICIDAL IDEATIONS]Onset: 79-59-4658Jrnifpdk Past or Other Problems Problem ClassificationProblemDateDocumented DateEpisodic/ChronicE Codes: Fall (1 source)Fall on same level due to ice and snow, initial encounter; Translations: [FALL SAME LEVEL D/T ICE SNOW INIT]Onset: 07-29-1823Dqbvwovd Immunizations and screening for infectious disease (4 sources)Contact with and (suspected) exposure to other viral communicable diseases; Translations: [CONTCT EXPS OTH VIRL COMMUNICABL DZ]Onset: 04-10-2021 EpisodicOther non-traumatic joint disorders (3 sources)Pain in left ankle and joints of left foot; Translations: [PAIN IN LEFT ANKLE]Onset: 92-55-6271VcyukrfnGasfzea and strains (1 source)Sprain of unspecified ligament of left ankle, initial encounter; Translations: [SPRAIN UNS LIGAMENTLT ANKLE INIT]Onset: 08-38-5355Quattjlt Results Test NameValueInterpretationReference RangeFacilityFamily Medicine Office/Clinic Noteon 89-89-3308Jjvuvs Medicine Office/Clinic NoteFamily Medicine Office/Clinic Note HPI Staff Camille is [...] Date Status meningococcal conjugate vaccine 04/29/2022 Recorded diphtheria/pertussis, acel/tetanus adult 02/26/2017 Recorded meningococcal conjugate vaccine 02/26/2017 Recorded hepatitis A pediatric vaccine 02/26/2017 Recorded measles/mumps/rubella/varicella vaccine 01/02/2010 Recorded hepatitis A pediatric vaccine 01/02/2010 Recorded diphtheria/pertussis,acel/tetanus/polio 01/02/2010 Recorded Hib, unspecified formulation 05/05/2006 Recorded DTaP, unspecified formulation 05/05/2006 Recorded varicella virus vaccine 10/06/2005 Recorded measles/mumps/rubella virus vaccine 10/06/2005 Recorded influenza virus vaccine, inactivated 06/11/2005 Recorded poliovirus vaccine, inactivated 02/17/2005 Recorded DTaP, unspecified formulation 02/17/2005 Recorded poliovirus vaccine, inactivated 01/08/2005 Recorded Hib, unspecified formulation 01/08/2005 Recorded DTaP, unspecified formulation 01/08/2005 Recorded poliovirus vaccine, inactivated 2004 Recorded DTaP, unspecified formulation 2004 Recorded hepatitis B pediatric vaccine 2004 RecordedNoFairfield Medical CenterComment on above:Result Comment: Electronically Signed By: Sunitha Schneider\.br\Date and Time Signed: 09/09/24 15:02 ESTRAD - MISCon [id number] - [id number]#1.00[facility] Note-Physicianon [id number] Note-Physician [id number]#1.00[facility] InstituteRAD - MISCon [id number] - MISC [id number]#1.00[facility] InstituteAmbulatory Visit Summaryon [id number] Visit Summary CAMILLE RICHARDS :2005 Visit Date:11/26/2023 [...] 3:00 PM EST With: Sunitha Schneider Where: [facility] Family Medicine [facility] Medicine Office/Clinic Noteon [id number] Medicine Office/Clinic NoteChief Complaint 3 mo fu HPI Staff Camille [...] tab(s), Oral, Daily, 84 tab(s), Refill(s) 2, BlockSpring #72, 169.2, cm, 11/26/23 14:58:00 EDT, Height/Length Dosing, 104, kg, 11/26/23 14:58:00 EDT, Weight Dosing desogestrel-ethinyl estradiol, 1 tab(s), Oral, Daily, 28 tab(s), Refill(s) 0, BlockSpring #72, 169.2, cm, 07/16/23 13:55:00 EST, Height/Length [...] Date Status meningococcal conjugate vaccine 04/29/2022 Recorded diphtheria/pertussis, acel/tetanus adult 02/26/2017 Recorded meningococcal conjugate vaccine 02/26/2017 Recorded hepatitis A pediatric vaccine 02/26/2017 Recorded measles/mumps/rubella/varicella vaccine 01/02/2010 Recorded hepatitis A pediatric vaccine 01/02/2010 Recorded diphtheria/pertussis,acel/tetanus/polio 01/02/2010 Recorded Hib, unspecified formulation 05/05/2006 Recorded DTaP, unspecified formulation 05/05/2006 Recorded varicella virus vaccine 10/06/2005 Recorded measles/mumps/rubella virus vaccine 10/06/2005 Recorded influenza virus vaccine, inactivated 06/11/2005 Recorded poliovirus vaccine, inactivated 02/17/2005 Recorded DTaP, unspecified formulation 02/17/2005 Recorded poliovirus vaccine, inactivated 01/08/2005 Recorded Hib, unspecified formulation 01/08/2005 Recorded DTaP, unspecified formulation 01/08/2005 Recorded poliovirus vaccine, inactivated 2004 Recorded DTaP, unspecified formulation 2004 Recorded hepatitis B pediatric vaccine 2004 [facility] DaytonComment on above:Result Comment: Electronically Signed By: Suntiha Schneider\.br\Date and Time Signed: 11/26/23 15:08 EDTACETAMINOPHENon 12-02-2021 Acetaminophen [Mass/Vol]ug/dDBluonu27.0-30.0[facility] HospitalComment on above:Performed By: #### CMP, ACET, SALYC #### [facility] [address] [place] [address] Dr. Francis Duenas AUTO DIFFon [id number] #0.0 103/ulNormal0.0-0.1The Laila HospitalComment on above:Performed By: #### CBC #### [facility] [address] [place] [address] Dr. Francis DennisBasophils/100 WBC (Bld)0.3 %Normal0.2-2.0[facility] Comment on above:Performed By: #### CBC #### [facility] [address] [place] [address] Dr. Francis Miles #0.1 103/ulNormal0.0-0.7The [facility] HospitalComment on above: Performed By: #### CBC #### [facility] [address] [place] [address] Dr. Francis Dotyosinophils/100 WBC (Bld)0.8 %Critically low0.9-7.0The [facility] HospitalComment on above:Performed By: #### CBC #### [facility] [address] [place] [address] Dr. Francis Dotyrythrocyte distribution width (RBC) [Ratio]14.5 %Rdzgqq84.0-15.0 The [facility] HospitalComment on above:Performed By: #### CBC #### [facility] [address] [place] [address] Dr. Francis DennisHematocrit (Bld) [Volume fraction]40.3 %Hmkxkd43.0-48.0The [facility] HospitalComment on above:Performed By: #### CBC #### [facility] [address] [place] [address] Dr. Francis DennisHemoglobin (Bld) [Mass/Vol]12.6 g/dQVqmfmr60.0-16.0The [facility] HospitalComment on above:Performed By: #### CBC #### [facility] [address] [place] [address] Dr. Francis Crocker #0.04 10e3/ulCritically high0.00-0.03[facility] Comment on above:Performed By: #### CBC #### [facility] [address] [place] [address] Dr. Francis Crocker %0.5 %Normal0.0-0.5The [facility] HospitalComment on above: Performed By: #### CBC #### [facility] [address] [place] [address] Dr. Francis Canales #1.4 103/ulNormal1.2-3.8The [facility] HospitalComment on above:Performed By: #### CBC #### [facility] [address] [place] [address] Dr. Francis Gillhocytes/100 WBC (Bld)15.9 %Critically low20.5-60.0The [facility] HospitalComment on above:Performed By: #### CBC #### [facility] [address] [place] [address] Dr. Francis Mariee DIFF REQNONormalThe [facility] HospitalComment on above: Performed By: #### CBC #### [facility] [address] [place] [address] Dr. Francis Cleemnte (RBC) [Entitic mass]27.0 bjAgizwm38.7-34.0The [facility] HospitalComment on above:Performed By: #### CBC #### [facility] [address] [place] [address] Dr. Francis Jade (RBC) [Mass/Vol]31.3 g/tAQuelsp64.9-35.2The [facility] HospitalComment on above:Performed By: #### CBC #### [facility] [address] [place] [address] Dr. Francis Downs (RBC) [Entitic vol]86.5 kAMuwszf46.1-95.6The [facility] HospitalComment on above:Performed By: #### CBC #### [facility] [address] [place] [address] Dr. Francis Jeffrey #0.7 103/ulNormal0.3-0.8The [facility] HospitalComment on above:Performed By: #### CBC #### [facility] [address] [place] [address] Dr. Francis Darbyocytes/100 WBC (Bld)7.5 %Normal1.7-12.0[facility] Comment on above:Performed By: #### CBC #### [facility] [address] [place] [address] Dr. Francis Barcenas #6.7 103/ulCritically high1.4-6.5ThMorrow County Hospital Comment on above:Performed By: #### CBC #### [facility] [address] [place] [address] Dr. Francis Doverutrophils/100 WBC (Bld)75.0 %Ywsski31.0-75.0The [facility] HospitalComment on above:Performed By: #### CBC #### [facility] [address] [place] [address] Dr. Francis Dubonlet mean volume (Bld) [Entitic vol]9.2 fLCritically low 9.5-13.5The [facility] HospitalComment on above:Performed By: #### CBC #### [facility] [address] [place] [address] Dr. Francis DennisPLT287 103/wqNbetmt879-913Ydm [facility] HospitalComment on above: Performed By: #### CBC #### [facility] [address] [place] [address] Dr. Francis DennisRBC4.66 106/ulNormal3.40-5.30The [facility] HospitalComment on above:Performed By: #### CBC #### [facility] [address] [place] [address] Dr. Francis DennisWBC8.9 103/ulNormal4.0-11.0The [facility] HospitalComment on above: Performed By: #### CBC #### [facility] [address] [place] [address] Dr. Francis DennisDRUG SCREEN RAPID (URINE)on 11-73-7076UEAEairzwdiYkwikvPHTGDWKL [facility] HospitalComment on above:Performed By: #### CVDTBH, CVDAGS #### [facility] [address] [place] [address] Beti KarenBARNegativeNormalNEGATIVEOhio State East HospitalComment on above: Performed By: #### CVDTBH, CVDAGS #### [facility] [address] [place] [address] Beti KarenBUPNegativeNormalNEGATIVEOhio State East HospitalComment on above: Performed By: #### CVDTBH, CVDAGS #### [facility] [address] [place] [address] Beti KarenBZONegativeNormalNEGATIVEOhio State East HospitalComment on above: Performed By: #### CVDTBH, CVDAGS #### [facility] [address] [place] [address] Beti KarenCOCNegativeNormalNEGATIVEOhio State East HospitalComment on above: Performed By: #### CVDTBH, CVDAGS #### [facility] [address] [place] [address] KarenCUT-OFFSSEE BELOWNoalThMorrow County HospitalComment on above:Result Comment: AMP (Amphetamine): 500ng/mL, BAR (Barbituates): 200 ng/mL, BZO (Benzodiazepines): 150 ng/mL, BUP (Buprenorphine): 10 ng/mL, LACY (Cocaine): 150 ng/mL, mAMP (Methamphetamine): 500 ng/mL, MTD (Methadone): 200 ng/mL, OPI (Opiates): 100 ng/mL, OXY (Oxycodone): 100 ng/mL, PCP (Phencyclidine): 25 ng/mL, PPX (Propoxyphene): 300 ng/mL, THC (Cannabinoids): 50 ng/mL, TCA (Trycyclic Antidepressants): 300 ng/mLPerformed By: #### CVDTBH, CVDAGS #### [facility] [address] [place] [address] KarenDRUG CUT HEADERDRUG CLASS TEST SYSTEM CUT-OFF CONCENTRATIONS ARE FOLLOWS:NormalOhio State East HospitalComhenry ford jackson hospital on above:Performed By: #### CVDTBH, CVDAGS #### [facility] [address] [place] [address] KarenmAMPNegativeNormalNEGATIVEKettering Health Washington Township HospitalComment on above: Performed By: #### CVDTBH, CVDAGS #### [facility] [address] [place] [address] Beti KarenMTDNegativeNormalNEGATIVEOhio State East HospitalComment on above: Performed By: #### CVDTBH, CVDAGS #### [facility] [address] [place] [address] Beti KarenOPINegativeNormalNEGATIVEKettering Health [facility] Township HospitalHca Midwest Divisionment on above: Performed By: #### CVDTBH, CVDAGS #### [facility] [address] [place] [address] Beti KarenOXYNegativeNormalNEGDayton Osteopathic HospitalComhenry ford jackson hospital on above: Performed By: #### CVDTBH, CVDAGS #### [facility] [address] [place] [address] Beti KarenPCPNegativeNormalNEGAdams County Hospital on above: Performed By: #### CVDTBH, CVDAGS #### [facility] [address] [place] [address] Beti KarenPPXNegativeNormalNEGAdams County Hospital on above: Performed By: #### CVDTBH, CVDAGS #### [facility] [address] [place] [address] Beti KarenTCAPositiveAbnormalNEGATIVECleveland Clinic [facility] on above: Performed By: #### CVDTBH, CVDAGS #### [facility] [address] [place] [address] Beti KarenTHCNegativeNormalNEGDayton Osteopathic HospitalComment on above: Performed By: #### CVDTBH, CVDAGS #### [facility] [address] [place] [address] Beti KarenER URINE PROFILEon 34-50-0906Merupztjr Ql (U)NegativeNormalNEGATIVE [facility] HospitalComment on above:Performed By: #### CVDTBH, CVDAGS #### [facility] [address] [address] Beti KarenClarity (U)CLEARNormalCLEAROhio State East HospitalComment on above: Performed By: #### CVDTBH, CVDAGS #### [facility] [address] [address] Beti KarenColor (U)YELLOWNormalYELLOWOhio State East HospitalComment on above: Performed By: #### CVDTBH, CVDAGS #### [facility] [address] [address] Beti KarenERUAHDA micrscopic examination will be performed if indicated.Normal The [facility] HospitalComment on above:Performed By: #### CVDTBKai CVDAGS #### [facility] [address] [place] [address] Beti KarenGlucose Ql (U)NegativeNormalNEGATIVEOhio State East HospitalComment on above:Performed By: #### CVDTBKai CVDAGS #### [facility] [address] [address] Beti KarenHemoglobin Ql (U)NegativeNormalNEGATIVEOhio State East HospitalComment on above:Performed By: #### CVDTBKai CVDAGS #### [facility] [address] [place] [address] Beti KarenKetones Ql (U)NegativeNormalNEGATIVEOhio State East HospitalComment on above:Performed By: #### CVDTBH, CVDAGS #### [facility] [address] [place] [address] Beti KarenLEUKOCYTESNegativeNormalNEGATIVEOhio State East HospitalComhenry ford jackson hospital on above:Performed By: #### CVDTBH, CVDAGS #### [facility] [address] [place] [address] Beti KarenNitrite Ql (U)NegativeNormalNEGATIVEOhio State East HospitalComment on above:Performed By: #### CVDTBH, CVDAGS #### [facility] [address] [address] Beti KarenpH (U)6.0 [pH]Normal5-9The [facility] HospitalComment on above: Performed By: #### CVDTBH, CVDAGS #### [facility] [address] [place] [address] Beti KarenSPEC GRAVITY1.957Wytbbg8.005-<=1.025The [facility] HospitalComment on above:Performed By: #### CVDTBH, CVDAGS #### [facility] [address] [place] [address] Beti KarenUA PROTEINNegativeNormalNEGATIVE/ TRACEThe [facility] HospitalComment on above:Performed By: #### CVDTBH, CVDAGS #### [facility] [address] [place] [address] Beti KarenUR MICRO INDNOT INDICATEDNoOur Lady of Mercy HospitalComment on above:Performed By: #### CVDTBH, CVDAGS #### [facility] [address] [place] [address] Beti KarenUrobilinogen Qn (U)0.2 {Clara'U}/dLNormal0.2 - 1.0The [facility] HospitalComment on above:Performed By: #### CVDTBH, CVDAGS #### [facility] [address] [place] [address] Beti KarenETHANOL (BLD ALC)on 83-67-4115KSO NOTENOTE: 80 mg/dl is the legal limit for a blood alcohol levelNoOur Lady of Mercy HospitalComment on above: Performed By: #### ETH #### [facility] [address] [place] [address] Dr. Blanco ChangEthanol [Mass/Vol]mg/dLMetroHealth Parma Medical CenterComment on above:Performed By: #### ETH #### [facility] [address] [place] [address] Dr. Francis Temple HCG QUALon 61-91-8178CQLRWIZKG, QUALNegativeNormalNEGATIVE The [facility] HospitalComment on above:Performed By: #### PREG #### [facility] [address] [address] [address] Francis DennisPREGNANCY URon 55-08-6931AHBPHELET, QUALNegativeNormalNEGATIVEThe [facility] HospitalComment on above:Performed By: #### PREGU, ERUR, DRUGRPD #### [facility] [address] [place] [address] Dr. Francis DennisPROF 14(COMP METB)on 96-27-2333Cbggvsa [Mass/Vol]4.2 g/dLNormal 3.4-5.0The [facility] HospitalComment on above:Performed By: #### CMP, ACET, SALYC #### [facility] [address] [place] [address] Dr. Francis DennisAlbumin/Globulin [Mass ratio]1.2 {ratio}NormalThe [facility] HospitalComment on above:Performed By: #### CMP, ACET, SALYC #### [facility] [address] [place] [address] Dr. Francis Bello [Catalytic activity/Vol]85 U/JJcpawl27-189Bcl [facility] HospitalComment on above:Performed By: #### CMP, ACET, SALYC #### [facility] [address] [place] [address] Dr. Francis Falcon [Catalytic activity/Vol]30 U/VCcjxvh84-81Xei [facility] HospitalComment on above:Performed By: #### CMP, ACET, SALYC #### [facility] [address] [place] [address] Dr. Francis Hunt gap [Moles/Vol]10.4 mmol/LNormalThe [facility] Comment on above:Performed By: #### CMP, ACET, SALYC #### [facility] [address] [place] [address] Dr. Francis Sepulveda [Catalytic activity/Vol]20 U/LOpurht97-51Djn [facility] HospitalComment on above:Performed By: #### CMP, ACET, SALYC #### [facility] [address] [place] [address] Dr. Francis DennisBilirubin [Mass/Vol]0.2 mg/dLNormal0.2-1.0[facility] Comment on above:Performed By: #### CMP, ACET, SALYC #### [facility] [address] [place] [address] Dr. Francis DennisCalcium [Mass/Vol]8.9 mg/dLNormal8.5-10.1The [facility] Comment on above:Performed By: #### CMP, ACET, SALYC #### [facility] [address] [place] [address] Dr. Francis DennisChloride [Moles/Vol]103 mmol/MRnqaxk40-988Yvn [facility] Comment on above:Performed By: #### CMP, ACET, SALYC #### [facility] [address] [place] [address] Dr. Francis DennisCO2 [Moles/Vol]31.8 mmol/UOtjfmv49.0-32.0The [facility] Comment on above:Performed By: #### CMP, ACET, SALYC #### [facility] [address] [place] [address] Dr. Francis DennisCreatinine [Mass/Vol]0.96 mg/dLNormal0.55-1.02The [facility] HospitalComment on above:Performed By: #### CMP, ACET, SALYC #### [facility] [address] [place] [address] Dr. Francis DotyGFR-AF ANGUILLAN>60Normal>=60The [facility] HospitalComment on above:Performed By: #### CMP, ACET, SALYC #### [facility] [address] [place] [address] Dr. Francis DotyGFR-NON AF ANGUILLAN>60Normal>=60The [facility] HospitalComment on above:Performed By: #### CMP, ACET, SALYC #### [facility] [address] [place] [address] Dr. Francis DennisGlobulin (S) [Mass/Vol]3.4 g/dLNormalThe [facility] HospitalComment on above:Performed By: #### CMP, ACET, SALYC #### [facility] [address] [address] [address] Francis DennisGlucose [Mass/Vol]90 mg/pCHlwdsy88-613Tnh [facility] Comment on above:Performed By: #### CMP, ACET, SALYC #### [facility] [address] [address] [address] Francis DennisPotassium [Moles/Vol]4.2 mmol/LNormal3.5-5.1The [facility] Comment on above:Performed By: #### CMP, ACET, SALYC #### [facility] [address] [address] [address] Francis DennisProtein [Mass/Vol]7.6 g/dLNormal6.1-8.2The [facility] Comment on above:Performed By: #### CMP, ACET, SALYC #### [facility] [address] [address] [address] Francis DennisSodium [Moles/Vol]141 mmol/TSyhpqj839-089Ieo [facility] Comment on above:Performed By: #### CMP, ACET, SALYC #### [facility] [address] [address] [address] Francis DennisUrea nitrogen [Mass/Vol]8.0 mg/dLNormal6.4-19.3The [facility] HospitalComment on above:Performed By: #### CMP, ACET, SALYC #### [facility] [address] [address] [address] Francis DennisUrea nitrogen/Creatinine [Mass ratio]8.3 mg/mgNormalThe [facility] HospitalComment on above:Performed By: #### CMP, ACET, SALYC #### [facility] [address] [place] [address] Dr. Francis DennisSALICYLATEon 98-01-3877RNFTLMXJHQ<2.8Normal<=20.0The [facility] HospitalComment on above:Performed By: #### CMP, ACET, SALYC #### [facility] [address] [address] [address] Francis Eppsaminophenon 28-48-6210Zurrphkhmodea [Mass/Vol]11.9 ug/mL Vhelit08.0-30.0[facility] Memorial HospitalComment on above:Result Comment: PERFORMED BY: [facility] [address] [id number] PATHOLOGIST [employer] MARGOT GALAN M.D.Performed By: #### [facility] [place] [place] #### [facility] [address] [place] [address] USACOVID-19 Antigenon 97-87-5110YFASC-19 AntigenHealthcare Worker?: N Malu Reference Malu Reference Negative SARS-CoV+SARS-CoV-2 (COVID-19) Ag [Presence] [...] its performance Malu Disclaimer characteristic determined by [employer] and Malu Disclaimer validated at [facility]. This Malu Disclaimer test has not been [...] is terminated or revoked sooner. PERFORMED BY: [place] [address] PATHOLOGIST EDITOR & CO FOUNDER MARGOT GALAN M.D.Clermont County HospitalComment on above: Performed By: #### COVID-19 GALO TORIBIOEG #### [place] [id number] USAECG 12 lead ECGon 47-99-2015NIJ 12 lead ECGOHIOHEALTH [facility] Main [place] [address] [place] [address] Electrocardiograph Report Signed Patient: Camille Richards MR#: [id number] 2 : 2005 Acct:[id number] Age/Sex: 15 / F ADM Date: 05/15/21 Loc: ER Room: Type: [facility] ER Attending Dr: Ordering Provider: Francisco Ba [...] ECGs available Confirmed by Francisco Ba DO ([id number]) on 05/16/2021 1:49:03 AM Referred By: Electronically Signed By:Francisco Ba DO Transcribed By: MUS Signed By Francisco Ba DO 1 0149NoWilson Memorial Hospitalofia Ag Negativeon 60-53-4830Lbbhe Ag NegativeNegativeNormilNegLake County Memorial Hospital - WestComment on above:Result Comment: This is a duplicate Malu SARS Antigen (CHRISTINE) result to be used for statistical tracking purpose only. PERFORMED BY: [place] [address] PATHOLOGIST EDITOR [employer] CO FOUNDER MARGOT GALAN M.D.Performed By: #### COVID-19 MALU, SOFIANEG #### [place] [address] USAAcetaminophenon 85-07-5734Witfyngghupgy [Mass/Vol]32.2 ug/hCQjsd98.0-30.0[facility]de Memorial HospitalComment on above:Result Comment: 4 hours after dose, critical > 150 12 hours after dose, critical > 40 PERFORMED BY: [place] [address] PATHOLOGIST EDITOR [employer] FOUNDER MARGOT GALAN M.D.Performed By: #### SHAI, ACET #### [place] [address] USAComplete Blood Count Auto Diffon 38-70-4926Bjvjnfnpq (Bld) [#/Vol]0.1 10*3/uLNormal0.0-0.1FChillicothe HospitalComment on above:Result Comment: PERFORMED BY: [place] [address] PATHOLOGIST EDITOR [employer] CO FOUNDER MARGOT GALAN M.D.Performed By: #### CBC, CMP, ETOH #### [place] [address] USABasophils/100 WBC (Bld)0.6 %Normal.[facility] Memorial HospitalComment on above:Performed By: #### CBC, CMP, ETOH #### [place] [address] USAEosinophils (Bld) [#/Vol]0.0 10*3/uLNormal0.0-0.7FChillicothe HospitalComment on above:Performed By: #### CBC, CMP, ETOH #### [place] [address] USAEosinophils/100 WBC (Bld)0.3 %Normal.[facility] Memorial HospitalComment on above:Performed By: #### CBC, CMP, ETOH #### [place] [address] USAErythrocyte distribution width (RBC) [Ratio]13.4 %Normal 11.9-15.3FChillicothe HospitalComment on above:Performed By: #### CBC, CMP, ETOH #### [place] [address] USAHematocrit (Bld) [Volume fraction]40.9 %Xpgryg24.0-46.0 [facility] HospitalComment on above:Performed By: #### CBC, CMP, ETOH #### [place] [address] USAHemoglobin (Bld) [Mass/Vol]13.6 g/pXVpwagl85.0-16.0 [facility] HospitalComment on above:Performed By: #### CBC, CMP, ETOH #### [facility] [address] [place] [address] USALymphocytes (Bld) [#/Vol]1.6 10*3/uLNormal1.20-4.8 [facility] HospitalComment on above:Performed By: #### CBC, CMP, ETOH #### [facility] [address] [place] [address] USALymphocytes/100 WBC (Bld)12.2 %Normal.[facility] Memorial HospitalComment on above:Performed By: #### CBC, CMP, ETOH #### [place] [address] USAMCH (RBC) [Entitic mass]28.6 rpUmgyio09.0-35.0[facility] Memorial HospitalComment on above:Performed By: #### CBC, CMP, ETOH #### [place] [address] USAMCV (RBC) [Entitic vol]86.2 lVGgbufm66-200GnpmcymkrMccullough-Hyde Memorial HospitalComment on above:Performed By: #### CBC, CMP, ETOH #### [place] [address] USAMean Corpuscular HGB Conc33.2 g/wQOkttkn59.0-37.0[facility] Memorial HospitalComment on above:Performed By: #### CBC, CMP, ETOH #### [place] [address] USAMonocytes (Bld) [#/Vol]0.9 10*3/uLNormal0.1-1.00[facility] Memorial HospitalComment on above:Performed By: #### CBC, CMP, ETOH #### [place] [address] USAMonocytes/100 WBC (Bld)6.8 %Normal.[facility]de Memorial HospitalComment on above:Performed By: #### CBC, CMP, ETOH #### [place] [address] USANeutrophils (Bld) [#/Vol]10.4 10*3/uLHigh1.2-7.7FChillicothe HospitalComment on above:Performed By: #### CBC, CMP, ETOH #### [facility] [address] [place] [address] USANeutrophils/100 WBC (Bld)80.1 %Normal.[facility] Memorial HospitalComment on above:Performed By: #### CBC, CMP, ETOH #### [facility] [address] [place] [address] USANucleated RBC/100 WBC (Bld) [Ratio]0.0 %Normal0-0.5 [facility] HospitalComment on above:Performed By: #### CBC, CMP, ETOH #### [place] [address] USAPlatelet mean volume (Bld) [Entitic vol]7.5 fLNormal 6.3-10.7FChillicothe HospitalComment on above:Performed By: #### CBC, CMP, ETOH #### [place] [address] USAPlatelets (Bld) [#/Vol]301 10*3/kMDtvdwj473-446OpxqxckpbMccullough-Hyde Memorial HospitalComment on above:Performed By: #### CBC, CMP, ETOH #### [place] [address] USARBC (Bld) [#/Vol]4.74 10*6/uLNormal4.10-5.10[facility] HospitalComment on above:Performed By: #### CBC, CMP, ETOH #### [place] [address] USAWBC (Bld) [#/Vol]13.0 10*3/uLNormal4.5-13.5FChillicothe HospitalComment on above:Performed By: #### CBC, CMP, ETOH #### [place] [address] USAComprehensive Metabolic Panelon 65-18-9772Emowrem [Mass/Vol]4.2 g/dLNormal3.2-5.5FChillicothe HospitalComment on above:Performed By: #### CBC, CMP, ETOH #### [facility] [address] [place] [address] USAAlbumin/Globulin [Mass ratio]1.7 {ratio}NormalMccullough-Hyde Memorial HospitalComment on above:Performed By: #### CBC, CMP, ETOH #### [facility] [address] [place] [address] USAALP [Catalytic activity/Vol]55 U/LTne43-423NeygeerufMccullough-Hyde Memorial HospitalComment on above:Performed By: #### CBC, CMP, ETOH #### [facility] [address] [place] [address] USAALT [Catalytic activity/Vol]36 U/NVoaaop47-46BzllcjxnkMccullough-Hyde Memorial HospitalComment on above:Performed By: #### CBC, CMP, ETOH #### [facility] [address] [place] [address] USAAST [Catalytic activity/Vol]26 U/MDrpltk95-23XmahbhtnkMccullough-Hyde Memorial HospitalComment on above:Performed By: #### CBC, CMP, ETOH #### [facility] [address] [place] [address] USABilirubin [Mass/Vol]0.6 mg/dLNormal0.3-1.2FChillicothe HospitalComment on above:Performed By: #### CBC, CMP, ETOH #### [facility] [address] [place] [address] USACalcium [Mass/Vol]9.5 mg/dLNormal8.2-10.2FChillicothe HospitalComment on above:Performed By: #### CBC, CMP, ETOH #### [facility] [address] [place] [address] USAChloride [Moles/Vol]100 mmol/TKzxqnk02-321FtghkgpiuMccullough-Hyde Memorial HospitalComment on above:Performed By: #### CBC, CMP, ETOH #### [facility] [address] [place] [address] USACO2 [Moles/Vol]25.9 mmol/EDaucom51.0-30.0[facility] HospitalComment on above:Performed By: #### CBC, CMP, ETOH #### [facility] [address] [place] [address] USACreatinine [Mass/Vol]0.83 mg/dLNormal0.44-1.03[facility] HospitalComment on above:Performed By: #### CBC, CMP, ETOH #### [facility] [address] [place] [address] USACreatinine Clr Calc Oybnqmqc873.35NoProMedica Memorial HospitalComment on above:Result Comment: PERFORMED BY: [facility] [address] [place] [address] PATHOLOGIST EDITOR [employer] FOUNDER MARGOT GALAN M.D.Performed By: #### CBC, CMP, ETOH #### [facility] [address] [place] [address] USAGlobulin (S) [Mass/Vol]2.5 g/dLNoProMedica Memorial HospitalComment on above:Performed By: #### CBC, CMP, ETOH #### [facility] [address] [place] [address] USAGlucose [Mass/Vol]98 mg/rKEbmkwv84-388OjyjbcebhMccullough-Hyde Memorial HospitalComment on above:Result Comment: Random Glucose Reference Range is dependent on time and content of last meal. Glucose of more than 200 mg/dL in a nonstressed, ambulatory subject supports the diagnosis of Diabetes Mellitus. ADA recommended reference rangePerformed By: #### CBC, CMP, ETOH #### [facility] [address] [place] [address] USAPotassium [Moles/Vol]3.8 mmol/LNormal3.5-5.1FChillicothe HospitalComment on above:Performed By: #### CBC, CMP, ETOH #### [facility] [address] [place] [address] USAProtein [Mass/Vol]6.7 g/dLNormal6.1-7.9[facility] HospitalComment on above:Performed By: #### CBC, CMP, ETOH #### [facility] [address] [place] [address] USASodium [Moles/Vol]138 mmol/CIvdhfn026-696WnmmvtcetMccullough-Hyde Memorial HospitalComment on above:Performed By: #### CBC, CMP, ETOH #### [facility] [address] [place] [address] USAUrea nitrogen [Mass/Vol]10 mg/dLNormal9-[facility] HospitalComment on above:Performed By: #### CBC, CMP, ETOH #### [facility] [address] [place] [address] USADipstick and Microscopicon 33-69-0467Mdfzpymuix (U) Slightly CloudyCritically abnormalCleSelect Medical Specialty Hospital - ColumbusComment on above:Order Comment: Name Collection Type:: Clean-Voided MidstreamPerformed By: #### ADDONUAPLUS, URDS, UHCG #### [place] [address] USABacteria,Urine2+HighNone SeenMccullough-Hyde Memorial HospitalComment on above:Order Comment: Name Collection Type:: Clean-Voided MidstreamPerformed By: #### ADDONUAPLUS, URDS, UHCG #### [place] [address] USABilirubin,Urine1+HighNegativeMccullough-Hyde Memorial HospitalComment on above:Order Comment: Name Collection Type:: Clean-Voided MidstreamPerformed By: #### ADDONUAPLUS, URDS, UHCG #### [place] [address] USAColor (U)YellowNormalYellowMccullough-Hyde Memorial HospitalComment on above:Order Comment: Name Collection Type:: Clean-Voided MidstreamPerformed By: #### ADDONUAPLUS, URDS, UHCG #### [place] [address] USAGlucose Ql (U)NormalNormalNormalMccullough-Hyde Memorial HospitalComment on above:Order Comment: Name Collection Type:: Clean-Voided MidstreamPerformed By: #### ADDONUAPLUS, URDS, UHCG #### [facility] [address] [place] [address] USAKetones Ql (U)1+HighNegativeMccullough-Hyde Memorial HospitalComment on above:Order Comment: Name Collection Type:: Clean-Voided MidstreamPerformed By: #### ADDONUAPLUS, URDS, UHCG #### [place] [address] USALeukocyte esterase Test strip Ql (U)NegativeNormalNegative [facility] HospitalComment on above:Order Comment: Name Collection Type:: Clean-Voided MidstreamPerformed By: #### ADDONUAPLUS, URDS, UHCG #### [place] [address] USAMucus,Urine2+Critically abnormalMccullough-Hyde Memorial HospitalComment on above:Order Comment: Name Collection Type:: Clean-Voided MidstreamPerformed By: #### ADDONUAPLUS, URDS, UHCG #### [place] [address] USANitrite,UrineNegativeNormalNegativeMccullough-Hyde Memorial HospitalComment on above:Order Comment: Name Collection Type:: Clean- Voided MidstreamPerformed By: #### ADDONUAPLUS, URDS, UHCG #### [place] [address] USAOccult Blood,UrineNegativeNormalNegLake County Memorial Hospital - WestComment on above:Order Comment: Name Collection Type:: Clean- Voided MidstreamPerformed By: #### ADDONUAPLUS, URDS, UHCG #### [place] [address] USApH (U)5.5 [pH]Normal5.0-9.0[facility] HospitalComment on above:Order Comment: Name Collection Type:: Clean-Voided MidstreamPerformed By: #### ADDONUAPLUS, URDS, UHCG #### [place] [address] USAProtein (U) [Mass/Vol]30 mg/dLHighNegLake County Memorial Hospital - WestComment on above:Order Comment: Name Collection Type:: Clean-Voided MidstreamPerformed By: #### ADDONUAPLUS, URDS, UHCG #### [facility] [address] [place] [address] USARBC LM.HPF (Urine sed) [#/Area]0 /[HPF]Normal0-4FChillicothe HospitalComment on above:Order Comment: Name Collection Type:: Clean-Voided MidstreamPerformed By: #### ADDONUAPLUS, URDS, UHCG #### [place] [address] USASpecificy Monroe,Urine1.887Laekgp9.001-1.030[facility] HospitalComment on above:Order Comment: Name Collection Type:: Clean-Voided MidstreamPerformed By: #### ADDONUAPLUS, URDS, UHCG #### [facility] [address] [place] [address] USASquamous Epithelial Cell,Ajsve6-4Qkab3-9KdqxnungwChillicothe HospitalComment on above:Order Comment: Name Collection Type:: Clean- Voided MidstreamPerformed By: #### ADDONUAPLUS, URDS, UHCG #### [place] [address] USAUrobilinogen,UrineNormalNormalNormCity HospitalComment on above:Order Comment: Name Collection Type:: Clean- Voided MidstreamPerformed By: #### ADDONUAPLUS, URDS, UHCG #### [place] [address] USAWBC,Bmimo0-9Cbflfz0-3DsaludmpsChillicothe Hospital Comment on above:Order Comment: Name Collection Type:: Clean-Voided Midstream Performed By: #### ADDONUAPLUS, URDS, UHCG #### [place] [address] USADrug Screen,Urineon 08-40-3852Sfsupsjpkdh Screen,Urine NegativeNormalNegativeMccullough-Hyde Memorial HospitalComment on above: Performed By: #### ADDONUAPLUS, URDS, UHCG #### [facility] [address] [place] [address] USABarbiturate Screen,UrineNegativeNormalNegativeMccullough-Hyde Memorial HospitalComment on above:Performed By: #### ADDONUAPLUS, URDS, UHCG #### [facility] [address] [place] [address] USABenzodiazepines Screen,UrineNegativeNormalNegative [facility] HospitalComment on above:Performed By: #### ADDONUAPLUS, URDS, UHCG #### [place] [address] USACannabinoid Screen,UrineNegativeNormilNegLake County Memorial Hospital - WestComment on above:Result Comment: These are unconfirmed results and should not be used for legal purposes. Drug Cut-Off Concentration: AMPH 1000 ng/mL CHENCHO 200 ng/mL ANNI 200 ng/mL COCM 300 ng/mL OP 300 ng/mL PCP 25 ng/mL THC 20 ng/mL PERFORMED BY: [place] [address] PATHOLOGIST EDITOR [employer] FOUNDER MARGOT GALAN M.D.Performed By: #### ADDONUAPLUS, URDS, UHCG #### [place] [address] USACocaine Screen,UrineNegativeNormilNegLake County Memorial Hospital - WestComment on above:Performed By: #### ADDONUAPLUS, URDS, UHCG #### [place] [address] USAOpiate Screen,UrineNegativeNormalNegativeMccullough-Hyde Memorial HospitalComment on above:Performed By: #### ADDONUAPLUS, URDS, UHCG #### [place] [address] USAPhencyclidine Screen,UrineNegativeNormalNegLake County Memorial Hospital - WestComment on above:Performed By: #### ADDONUAPLUS, URDS, UHCG #### [place] [address] USAEthyl Alcohol Profileon 94-32-3420Zosiumd [Mass/Vol]mg/dL NormalMccullough-Hyde Memorial HospitalComment on above:Performed By: #### CBC, CMP, ETOH #### [place] [address] USAPercent EthanolNot performedNormalMccullough-Hyde Memorial HospitalComment on above:Result Comment: PERFORMED BY: [place] [address] PATHOLOGIST EDITOR [employer] FOUNDER MARGOT GALAN M.D.Performed By: #### CBC, CMP, ETOH #### [place] [address] USAHCG,Urineon 61-14-0107Jwks HCG ( test) Ql (U) NegativeNormCity HospitalComment on above:Order Comment: Name Collection Type:: Clean-Voided MidstreamResult Comment: PERFORMED BY: [place] [address] PATHOLOGIST EDITOR [employer] FOUNDER MARGOT GALAN M.D.Performed By: #### ADDONUAPLUS, URDS, UHCG #### [place] [address] USASalicylateon 60-18-0624Cnvqhyarhi< 4.0Low15.0-30.0 [facility] HospitalComment on above:Result Comment: Patients treated with Sulfasalazine may generate a false high result for Salicylate. Patients treated with Sulfapyridine may generate a false low result for Salicylate.Performed By: #### SHAI, ACET #### [place] [address] USACovid-19 PCR (CVDTBH)on 33-68-5974MTMI-CoV-2 (COVID-19) RNA ABHIJEET+probe Ql (Unsp spec)Not detectedNormalNOT DETECTEDThe [facility] Comment on above:Result Comment: This test is not yet approved or cleared by the [place] FDA. When there are no FDA-approved or cleared tests available, and other criteria are met, FDA can make tests available under an emergency access mechanism called an Emergency Use Authorization (EUA). The EUA for this test is supported by the [place] of Health and Human Service's (HHS's) declaration that circumstances exist to justify the emergency use of in vitro diagnostics for the detection and/or diagnosis of the virus that causes COVID- 19. This EUA will remain in effect (meaning [...] of clinical signs and symptoms consistent with SARS-CoV-2.Performed By: #### CVDTBKai, CVDISACS #### [facility] [address] [place] [address] Beti KarenSYMPTOMATIC COVID-19 ANTIGENon 92-77-7000AGR StatementSEE BELOW NormalThe [facility] Clinic [facility] HospitalComment on above:Result Comment: This test has not been FDA [...] declaration is terminated or authorization is revoked sooner.Performed By: #### CVDTBH, CVDAGS #### [facility] [address] [place] [address] Beti MendozaDdtpvKXQM-PtB-7 (COVID-19) RNA ABHIJEET+probe Ql (Unsp spec)NegativeNormal NEGATIVEThe Togus VA Medical Centerment on above:Result Comment: CONFIRMATION BY PCR PENDING PER CDC GUIDELINES/ SYMPTOMATIC PATIENT.Performed By: #### CVDTBH, CVDAGS #### [facility] [address] [place] [address] Beti Quintana Encounters Encounter DateEncounter TypeCare ProviderFacilityStart: 07-15-8049ekmxxbzsusUZZ Sunitha L SchwabFacility:FT FM BellevueStart: 09-09-2024 End: 33-91-1595ealrutyuioWPV Sunitha L SchwabFacility:FT FM [place]vueStart: 08-31-2024 End: 12-21-9718auivimqfbpMGM Sunitha L SchwabFacility:FT FM [place]vueStart: 08-25-2024 End: 12-05-1521mtzcrobwnjHSO Sunitha L SchwabFacility:FT FM [place]vueStart: 11-26-2023 End: 52-84-5900ggnhnravunBHS Sunitha L SchwabFacility:FT FM [place]vueStart: 10-02-2023 End: 74-47-7121znllqcllgxPZV Sunitha L SchwabFacility:FT FM [place]vueStart: 46-44-6033epwnbnzrcaIII Sunitha SchwabFacility:FT FM [place]vueStart: 12-02-2021 End: 79-52-2728wzymmquvosVY KIM E KNIGHTFacility:Q7Yonfa: 08-29-2021 End: 90-44-3910nlnlfzwnjfUHYana CARIASFacility:Y5Dfuwt: 04-10-2021 End: 25-80-9929gykclxtishSC KIM E KNIGHTFacility:H1 Payers DatePayer CategoryPayerPolicy [id number] Health [id number] Health [id number] [id number] 84.1.421653.3.57[id number] .1.436479.3.57[id number] 840.1.819944.3.57[id number] 2.16.840.1.322534.3.57[id number] 2.16.840.1.731907.3.57[id number] 2.16.840.1.199289.3.57[id number] 2.16.840.1.126278.3.57[id number] 2.16.840.1.363522.3.57[id number] 2.16.840.1.129592.3.579.[id number] Clinical Note 08-29-2021 Note Date & MpaeLyadHkizpayc25-58-7420 NotePROCEDURE: XR ANKLE LT MIN 3 V HISTORY: Unspecified fall ; anterior lateral ankle pain after twisting injury COMPARISON: None. FINDINGS: BONES:No fracture, acute abnormality, or significant arthropathy. SOFT TISSUES:Mild swelling. EFFUSION:None visible. OTHER: Negative. IMPRESSION: 1. Mild swelling suggesting soft tissue injury. 2. No acute bone abnormality. Electronically authenticated by: JOSSELYN BONILLA Date: 2021-08-29 08:13[facility] Summary Purpose Family History No Family History Records FoundNo Family History Records FoundNo Family History Records Found Advance Directives No Advanced Directives Records FoundNo Advanced Directives Records FoundNo Advanced Directives Records Found Additional Source Comments INFORMATION SOURCE (unrecogn ized section and content) DATE CREATED AUTHOR 09/03/2021 [facility] DATE CREATED AUTHOR AUTHOR'S ORGANIZ ATION 12/08/2021 [facility] DATE CREATED AUTHOR AUTHOR'S ORGANIZ ATION 09/11/2024 [facility] FOR RECORDS PERTAINING TO PATIENTS [...] BE BASED ON THE PRIMARY CLINICAL RECORDS. [facility]. provides no warranty or guarantee of the accuracy or completeness of information in this document.
--- OUTSIDE RECORDS SUMMARY | 2025-07-20 20:06 | XMS_ITS | Patient Health Record ---
Author Organization [facility] Address [address] [place] [address] Care Team Providers Care [employer] Pathology Professor Name Role Phone Karlene Zambrano Primary Care Provider [phone] Allergies No Known Allergies Reason For Referral No Information Medications Medication SIG (Take, Route, Frequency, Duration) Notes Start Date End Date Status QUEtiapine Fumarate 400 MG Tablet 1 tabl et at bedtime Orally Once a day; Duration: 30 days Not-Taking/PRNLurasidone HCl 20 MG Tablet1 tablet in the evening with food Orally Once a day; Duration: 30 daysActivePropranolol HCl 20 mg TabletTAKE 1 TABLET BY MOUTH TWICE DAILY FOR ANXIETY; Duration: 30ActiveMelatonin Not-Taking/PRNlamoTRIgine 100 MG Tablet2 tablets Orally Once a day07/11/2021 Not-Taking/PRN Social History Social History GeneralSocial InfoQuestionAnswerNotesDepression Screening (PHQ-9):Little interest or pleasure in doing thingsMore than half the daysFeeling down, depressed, or hopelessNot at allTrouble falling or staying asleep, or sleeping too muchNot at allFeeling tired or having little energyNot at allPoor appetite or overeatingNot at allFeeling bad about yourself-or that you are a failure or have let yourself or your family downNot at allTrouble concentrating on things, such as reading the newspaper or watching televisionNot at allMoving or speaking so slowly that other people could have noticed. Or the opposite being so fidgety or restless that you have been moving around a lot more than usualNot at all Thoughts that you would be better off , or of hurting yourself in some way Not at allTotal Nbsxi2XweiejsqrgyvfHfgxhph Depression Problems Problem Type SNOMED Code ICD Code Onset Dates Problem Status W/U Status Risk Notes Problem Mild recurrent major depression (35471479) Major depressive disorder, recurrent episode, mild (F33.0) ActiveconfirmedProblemMixed bipolar affective disorder, moderate (009954333) Bipolar mixed affective disorder, moderate (F31.62)Activeconfirmed Plan Of Treatment No Information Insurance Providers Payer Name Payer Address Payer Phone Subscriber Number Group Number Insured Name Patient Relationship to Insured Coverage Start Date Coverage End Date ANTHEM Primary [address] [place] [address] [id number] VICKY MARR 1 3 [employer] [address] [place] [phone] [id number] VICKY MARR 1 1 Medical (General) History Medical History History ICD Code bipolar
--- NOTE | 2025-07-20 20:07 | CT_ITS ---
[facility] [id number] Patient Name: CAMILLE HUNT MRN: [id number] date: 2005 Sex: F Assigned Patient Location: ER Current Patient Location: ER Accession/Order Number: [id number] Exam Date: 07/20/2025 20:13 Report Date: 07/20/2025 20:32 At the request of: ERIC BLISS DO Procedure: CT head/brain wo con CT BRAIN WITHOUT CONTRAST: CLINICAL HISTORY: right sided MCCLURE COMPARISON: None TECHNIQUE: Contiguous axial unenhanced images were obtained through the brain. This CT exam was performed using one or more following dose reduction techniques: Automated exposure control, adjustment of the mA and/or kV according to patient size, or use of iterative reconstruction technique. FINDINGS: There is no evidence of midline shift, intra or extra-axial fluid collection, hemorrhage or CT evidence of of acute large vascular distribution stroke. Visualized intraorbital contents appear unremarkable. Visualized paranasal sinuses are clear. The surrounding soft tissues are normal. CT/CT head/brain wo con IMPRESSION: NO ACUTE INTRACRANIAL ABNORMALITY. Impression dictated by: Pramod Rivas M.D. 07/20/2025 8:32 PM Dictation Location: [place] [address] Electronically authenticated by: [id number] Y Date: 07/20/2025 20:32
--- OUTSIDE RECORDS SUMMARY | 2025-07-20 20:07 | XMS_ITS | Patient Health Record ---
Author Organization [facility] Address [address] [place] [address] Care Team Providers Care Policy Value Calculator Name Role Phone Sunitha Ryan Primary Care Provider Unavail able Allergies No Known Allergies Reason For Referral No Information Medications Medication SIG (Take, Route, Frequency, Duration) Notes Start Date End Date Status Propranolol HCl 20 MG TAKE 1 TABLET BY M OUTH TWICE DAILY FOR ANXIETY Oral; Duration: 28 Days Active Social History Tobacco Use: Social History Observation Description Date Details (start date - stop date) Never Smoker NA - NA Tobacco Control (Standard) Question Answer Notes Tobacco use: Nonsmoker Problems Problem Type SNOMED Code ICD Code Onset Dates Problem Status W/U Status Risk Notes Problem Arthralgia of the ankle and/or f oot (824328512) Right ankle pain (M25.571) Activeconfirmed Plan Of Treatment Pending Test Test Name Order Date XR ankle CARLINE min 3V 02/17/2024 Insurance Providers Payer Name Payer Address Payer Phone Subscriber Number Group Number Insured Name Patient Relationship to Insured Coverage Start Date Coverage End Date [facility] [address] [place] [address] [id number] 2024 Odette Richards Self - patient is the insured
--- NOTE | 2025-07-20 20:22 | ED.GENADUL1 ---
HPI HPI - General Adult General Chief complaint: Neuro Symptoms/Deficit Stated complaint: HEADACHE, LIGHTHEADED, CONFUSED Time Seen by Provider: 07/20/25 19:20 Source: patient Mode of arrival: walk-in Limitations: no limitations History of Present Illness HPI narrative: Patient is a 19-year-old female presenting to the emergency department for evaluation of a headache. Patient states that she woke up this morning with a mild right-sided headache. She states she took ibuprofen, which resolved her symptoms. However, intermittently throughout the day today, she has been having right-sided headache. She also states that headache is associate with episodes of feeling confused and word finding difficulty. She denies history of migraines. She denies any associated symptoms such as nausea, vomiting, visual disturbances, photophobia, neck pain or stiffness, fevers, weakness, paresthesias in the extremities, or gait imbalance. She states her symptoms were happening while in the lobby, but currently she is asymptomatic. She is otherwise healthy with no chronic medical conditions. She denies otorrhea or rhinorrhea. She lives with other people in her home who do not have similar symptoms. Related Data Home Medications ?Medication ?Instructions ?Recorded ?Confirmed No Known Home Medications 07/20/25 07/20/25 Allergies Allergy/AdvReac Type Severity Reaction Status Date / Time No Known Drug Allergies Allergy Verified 07/20/25 18:48 Opioid HPI Opioid Management Most Recent Opioid Data: Last Pain Scale 7 01/10/24, 23:54 Review of Systems ROS Status of ROS 10 or more systems reviewed and unremarkable except as noted in history and below PFSH PFSH Social History Little interest or pleasure in doing things: not at all Feeling down, depressed, or hopeless: several days Exam Narrative Exam Narrative: CONSTITUTIONAL: Well-appearing, answering questions and following commands appropriately SKIN: Was warm and dry. EYES: Sclerae white. EARS, NOSE, THROAT: Moist oral mucosa. RESPIRATORY: Clear to auscultation bilaterally, no wheezes, crackles, or stridor, no use of accessory muscles CARDIOVASCULAR: Normal rate and regular rhythm. There is no S3, S4, murmur, rub. GASTROINTESTINAL: Abdomen is soft, nontender, nondistended. MUSCULOSKELETAL: No peripheral edema. NEUROLOGIC: Patient is alert and oriented to person place and time with normal speech. Memory is normal and thought process is intact. Sensation: sensation to light touch is intact bilaterally in upper and lower extremities. Motor: Good muscle tone. Strength is 5/5 bilaterally in the upper and lower extremities. Cerebellar: Finger to nose intact. Patient has a normal gait without ataxia. Cranial Nerves: Pupils are round, reactive to light and accommodation. Extraocular movements are intact without ptosis. No nystagmus. Facial sensation intact bilaterally to light touch in the V1, V2, V3 distribution. Facial muscle strength is normal and equal bilaterally. Hearing is normal bilaterally. Palate and uvula elevate symmetrically. Shoulder shrug strong and equal bilaterally. Tongue protrudes midline and moves symmetrically. Constitutional Vital Signs, click to edit/add: Last Vital Signs Temp 99.8 F 07/20/25 18:48 Pulse 86 07/20/25 18:48 Resp 18 07/20/25 20:54 BP 132/65 07/20/25 18:48 Pulse Ox 100 07/20/25 20:54 O2 Del Method Room Air 07/20/25 20:54 Course Vital Signs Vital signs: Vital Signs Temperature 99.8 F 07/20/25 18:48 Pulse Rate 86 07/20/25 18:48 Respiratory Rate 12 07/20/25 18:48 Blood Pressure 132/65 07/20/25 18:48 Pulse Oximetry 94 L 07/20/25 18:48 Oxygen Delivery Method Room Air 07/20/25 18:48 Temperature 99.8 F 07/20/25 18:48 Pulse Rate 86 07/20/25 18:48 Respiratory Rate 18 07/20/25 20:54 Blood Pressure 132/65 07/20/25 18:48 Pulse Oximetry 100 07/20/25 20:54 Oxygen Delivery Method Room Air 07/20/25 20:54 Medical Decision Making MDM Narrative Medical decision making narrative: Patient is a previously healthy 19-year-old female with no chronic medical conditions presenting to the emergency department for evaluation of right-sided intermittent headaches throughout the day today associated confusion/disorientation and word finding difficulty. Her vital signs on arrival are within normal limits. She is afebrile hemodynamically stable. She has a normal physical examination without focal neurologic deficits. Overall, the patient is well-appearing with a normal exam. She is currently asymptomatic without an active headache. Her presentation may be secondary to migraine headache, tension headache. No otorrhea or symptoms consistent with cluster headache. I have low concern for other intracranial abnormalities such as SAH. Laboratory studies were obtained and CT head was ordered to further investigate. CT head independently reviewed/interpreted by myself demonstrated no acute intracranial pathology or hemorrhage. Laboratory studies were unremarkable. No significant electrolyte or metabolic derangement. No evidence of acute kidney injury. No anemia, leukocytosis, or thrombocytopenia. test negative. I do believe the patient is stable for discharge. Patient's presentation is most likely consistent with tension headache. They were instructed to follow up with her PCP for further care, she has an upcoming appointment within the next 2 weeks. Return precautions were given including any new or worsening symptoms. Patient understands and agrees to the plan. FINAL IMPRESSION: #Acute headache DISPOSITION: Discharged home CONDITION: Good Lab Data Lab results reviewed: Yes I reviewed the patient's lab results Labs: Lab Results 07/20/25 Range/Units 20:21 WBC 11.3 H (4.0-11.0) 10^3/uL RBC 4.95 (4.20-5.40) 10^6/uL Hgb 13.6 (12.0-16.0) g/dL Hct 41.6 (36.0-48.0) % MCV 84.0 (81.0-99.0) fL MCH 27.5 (26.7-34.0) pg MCHC 32.7 (29.9-35.2) g/dL RDW 13.8 (11.0-15.0) % Plt Count 294 (150-450) 10^3/uL MPV 9.5 (9.5-13.5) fL Neut % (Auto) 69.9 (43.0-75.0) % Lymph % (Auto) 22.6 (20.5-60.0) % Saline % (Auto) 6.1 (1.7-12.0) % Eos % (Auto) 0.7 L (0.9-7.0) % Baso % (Auto) 0.4 (0.2-2.0) % Neut # (Auto) 7.9 H (1.4-6.5) 10^3/uL Lymph # (Auto) 2.6 (1.2-3.8) 10^3/uL Saline # (Auto) 0.7 (0.3-0.8) 10^3/uL Eos # (Auto) 0.1 (0.0-0.7) 10^3/uL Baso # (Auto) 0.0 (0.0-0.1) 10^3/uL Abs Immat Gran (auto) 0.03 (0.00-0.03) 10^3/uL Imm/Tot Granulo (auto) 0.3 (0.0-0.5) % Sodium 139 (136-145) mmol/L Potassium 3.6 (3.5-5.1) mmol/L Chloride 104 (98-107) mmol/L Carbon Dioxide 27.9 (21.0-32.0) mmol/L Anion Gap 10.7 BUN 6.0 L (7.0-18.0) mg/dL Creatinine 0.82 (0.55-1.02) mg/dL Est GFR ( Amer) >60 (>=60 mL/min/1.73m^2) Est GFR (Non-Af Amer) >60 (>=60 mL/min/1.73m^2) BUN/Creatinine Ratio 7.3 Glucose 98 (74-106) mg/dL Calcium 9.1 (8.5-10.1) mg/dL Serum HCG, Qual Negative (NEGATIVE) Imaging Data CT scan - head: Attestation: I personally reviewed and interpreted this imaging study as follows: Radiologist's impression: ITS Impressions Head CT 07/20/25 20:07 IMPRESSION: NO ACUTE INTRACRANIAL ABNORMALITY. Impression dictated by: Pramod Rivas M.D. 07/20/2025 8:32 PM Dictation Location: [place] [address] Electronically authenticated by: [id number] Y Date: 07/20/2025 20:32 Discharge Plan Discharge Chief Complaint: Neuro Symptoms/Deficit Clinical Impression: Headache Patient Disposition: Home, Self-Care Time of Disposition Decision: 20:51 Condition: Good Mode of Transportation: Private Vehicle Prescriptions / Home Meds: No Action No Known Home Medications Print Language: Divehi Instructions: Acute Headache (ED) Referrals: JOSEPH TAPIA [Primary Care Provider, [facility]] - 1 week Discharge Date/Time: 07/20/25 20:56
[2025-07-20 20:28] LABS: Hematocrit 41.6 % (36.0-48.0); Hemoglobin 13.6 g/dL (12.0-16.0); Immature Granulocytes Abs Auto 0.03 10^3/uL (0.00-0.03); Immature Granulocytes Pct Auto 0.3 % (0.0-0.5); Lymphocytes Absolute Auto 2.6 10^3/uL (1.2-3.8); Mean Corpuscular HGB Conc 32.7 g/dL (29.9-35.2); Mean Corpuscular Hemoglobin 27.5 pg (26.7-34.0); Mean Corpuscular Volume 84.0 fL (81.0-99.0); Platelet Count 294 10^3/uL (150-450); Red Blood Count 4.95 10^6/uL (4.20-5.40); White Blood Count 11.3 10^3/uL (4.0-11.0)
[2025-07-20 20:39] LABS: Anion Gap 10.7; Blood Urea Nitrogen 6.0 mg/dL (7.0-18.0); Calcium 9.1 mg/dL (8.5-10.1); Carbon Dioxide 27.9 mmol/L (21.0-32.0); Chloride 104 mmol/L (98-107); Estimated GFR (African America >60 (>=60 mL/min/1.73m^2); Estimated GFR (Non-African Ame >60 (>=60 mL/min/1.73m^2); Glucose 98 mg/dL (74-106); Potassium 3.6 mmol/L (3.5-5.1); Sodium 139 mmol/L (136-145)
[2025-07-20 20:54] VITALS: O2SAT 100
== END 2025-07-20 20:56 | disposition home or self-care (01) ==
PROVIDERS: Emergency Provider Student in an Organized Health Care Education/Training Program; PCP Nurse Practitioner
DX: R51.9 Headache, unspecified (principal)
CPT/HCPCS: 36415; 70450; 80048; 84703; 85025; 99284